=== PATIENT | male | born 1995 | race American Indian/Alaskan Native ===

== ENCOUNTER 2017-07-20 22:23 | Emergency (ER) | payer SELFPAY ==
[2017-07-20 23:58] VITALS: BP 138/85
[2017-07-21 00:22] LABS: Basophils % (Auto) 1.1 % (0.0-1.8); Eosinophils % (Auto) 0.6 % (0.0-4.3); Hematocrit 49.9 % (35.5-45.6); Hemoglobin 16.4 gm/dl (11.8-15.2); Mean Corpuscular HGB Conc 33 % (32-34); Mean Corpuscular Hemoglobin 29 pg (28-32); Mean Corpuscular Volume 88 fl (84-94); Platelet Count 224 K/mm3 (140-440); Red Blood Count 5.66 M/mm3 (3.65-5.03); White Blood Count 7.6 K/mm3 (4.5-11.0)
[2017-07-21 00:39] LABS: Alanine Aminotransferase 16 units/L (7-56); Albumin 4.9 g/dL (3.9-5); Albumin/Globulin Ratio 1.5 %; Alkaline Phosphatase 60 units/L (35-129); Total Protein 8.1 g/dL (6.3-8.2)
[2017-07-21 00:40] LABS: Alanine Aminotransferase 15 units/L (7-56); Albumin 4.9 g/dL (3.9-5); Albumin/Globulin Ratio 1.6 %; Alkaline Phosphatase 60 units/L (35-129); Anion Gap 17 mmol/L; BUN/Creatinine Ratio 10; Blood Urea Nitrogen 11 mg/dL (9-20); Calcium 9.9 mg/dL (8.4-10.2); Carbon Dioxide 30 mmol/L (22-30); Chloride 99.4 mmol/L (98-107); Glucose 101 mg/dL (75-100); Lipase 45 units/L (13-60); Potassium 4.1 mmol/L (3.6-5.0); Sodium 142 mmol/L (137-145)
[2017-07-21 00:43] LABS: Bilirubin,Direct < 0.2 mg/dL (0-0.2); Bilirubin,Indirect 0.3 mg/dL
[2017-07-21 01:05] LABS: Bilirubin,Urine NEG (Negative); Blood,Urine NEG (Negative); Ketones,Urine NEG (Negative); Leukocyte Esterase,Urine NEG (Negative); Mucus,Urine FEW /HPF; Nitrite,Urine NEG (Negative); Protein,Urine <15 mg/dL mg/dL (Negative)
[2017-07-21] MEDS ORDERED: PROTONIX IV ONE (01:40)
[2017-07-21] MEDS ORDERED: NACL 0.9% 1000 ML 1,000 ML IV ONE (01:40)
[2017-07-21] MEDS ORDERED: ZOFRAN IV ONE (01:40)
--- NOTE | 2017-07-21 01:44 | Emergency Department Report ---
ED Abdominal Pain HPI - General Chief Complaint: Nausea/Vomiting/Diarrhea Stated Complaint: NAUSEA AND WEAKNESS Time Seen by Provider: 07/21/17 01:33 Source: patient Mode of arrival: Ambulatory Limitations: No Limitations - History of Present Illness Initial Comments: Patient is a 22 years old male was no significant past medical history came today received a history of nausea vomiting and epigastric pain. Patient stated that he's been vomiting multiple times. Patient denied fever, no diarrhea. MD Complaint: abdominal pain -: days(s) (3 days) Location: epigastric Radiation: none Migration to: no migration Severity scale (0 -10): 8 Quality: sharp Improves With: vomiting Associated Symptoms: nausea, vomiting. denies: diarrhea, fever, chills, constipation, dysuria, hematemesis - Related Data Previous Rx's Medication Instructions Recorded Last Taken Type Omeprazole Magnesium [PriLOSEC Otc] 20 mg PO QDAY #7 tablet. 05/11/16 Unknown Rx traMADol [Ultram] 50 mg PO Q6HR PRN #7 tablet 05/11/16 Unknown Rx Allergies Allergy/AdvReac Type Severity Reaction Status Date / Time No Known Allergies Allergy Verified 07/20/17 23:56 ED Review of Systems ROS: Stated complaint: NAUSEA AND WEAKNESS Other details as noted in HPI Comment: All other systems reviewed and negative Constitutional: denies: chills, fever Respiratory: denies: cough, orthopnea, shortness of breath, SOB with exertion, SOB at rest Cardiovascular: denies: chest pain, palpitations, dyspnea on exertion, edema, syncope, paroxysmal nocturnal dyspnea Gastrointestinal: abdominal pain, nausea, vomiting. denies: diarrhea, constipation, hematemesis, melena, hematochezia Genitourinary: denies: urgency, dysuria, frequency Musculoskeletal: denies: back pain Neurological: denies: headache, weakness, numbness, paresthesias ED Past Medical Hx - Past Medical History Previous Medical History?: No - Surgical History Past Surgical History?: No - Social History Smoking Status: Current Every Day Smoker Substance Use Type: Alcohol, Marijuana - Medications Home Medications: Home Medications Medication Instructions Recorded Confirmed Last Taken Type Omeprazole Magnesium [PriLOSEC Otc] 20 mg PO QDAY #7 tablet. 05/11/16 Unknown Rx traMADol [Ultram] 50 mg PO Q6HR PRN #7 tablet 05/11/16 Unknown Rx ED Physical Exam - General Limitations: No Limitations General appearance: alert, in no apparent distress - Head Head exam: Present: normocephalic - Eye Eye exam: Present: normal appearance - ENT ENT exam: Present: normal exam, normal orophraynx, mucous membranes dry - Neck Neck exam: Present: normal inspection. Absent: tenderness, meningismus, full ROM, lymphadenopathy, thyromegaly - Respiratory Respiratory exam: Present: normal lung sounds bilaterally. Absent: respiratory distress, wheezes, rales, rhonchi, chest wall tenderness, accessory muscle use, decreased breath sounds, prolonged expiratory - Cardiovascular Cardiovascular Exam: Present: regular rate, normal rhythm, normal heart sounds - GI/Abdominal GI/Abdominal exam: Present: soft, tenderness (epigastric), normal bowel sounds. Absent: distended, guarding, rebound, rigid, diminished bowel sounds, hyperactive bowel sounds, hypoactive bowel sounds, organomegaly, mass, bruit, pulsatile mass, hernia - Extremities Exam Extremities exam: Present: normal inspection, full ROM - Back Exam Back exam: Present: normal inspection. Absent: CVA tenderness (R), CVA tenderness (L) - Neurological Exam Neurological exam: Present: alert, oriented X3, CN II-XII intact, normal gait - Skin Skin exam: Present: warm, dry, intact ED Course Vital Signs 07/20/17 07/21/17 22:35 01:38 Temperature 998.2 F H Pulse Rate 92 H Respiratory 18 18 Rate Blood Pressure 138/85 Blood Pressure 138/85 [Right] O2 Sat by Pulse 98 Oximetry - Reevaluation(s) Reevaluation #1: 07/21/17 03:22 The patient stated that his feeling better and is ready to go home. ED Medical Decision Making - Lab Data Result diagrams: 07/21/17 00:04 07/21/17 00:04 Critical care attestation.: If time is entered above; I have spent that time in minutes in the direct care of this critically ill patient, excluding procedure time. ED Disposition Clinical Impression: Abdominal pain, Vomiting, Gastritis Disposition: -01 TO HOME OR SELFCARE Is pt being admited?: No Condition: Stable Instructions: Abdominal Pain (ED), Gastritis (ED) Referrals: PRIMARY CARE,MD [Primary Care Provider] - 3-5 Days
== END 2017-07-21 04:02 | disposition home or self-care (01) ==
LOC: ED 22:23 → EEVIPCON 22:23 → ED 07-21 04:02
DX: K29.70 Gastritis, unspecified, without bleeding (principal); F17.210 Nicotine dependence, cigarettes, uncomplicated; F12.10 Cannabis abuse, uncomplicated
CPT/HCPCS: 36415; 80053; 80074; 81001; 82140; 83690; 85025; 96361; 96374; 96375; 99283; C9113; J2405; J7030

== ENCOUNTER 2017-08-29 01:10 | Inpatient (IN) | payer SELFPAY ==
[2017-08-29 02:31] LABS: Basophils % (Auto) 0.4 % (0.0-1.8); Eosinophils % (Auto) 0.7 % (0.0-4.3); Hematocrit 48.2 % (35.5-45.6); Mean Corpuscular HGB Conc 33 % (32-34); Mean Corpuscular Hemoglobin 29 pg (28-32); Mean Corpuscular Volume 89 fl (84-94); Platelet Count 190 K/mm3 (140-440); Red Blood Count 5.45 M/mm3 (3.65-5.03); Red Cell Distribution Width 13.1 % (13.2-15.2); White Blood Count 8.1 K/mm3 (4.5-11.0)
[2017-08-29 02:52] LABS: Anion Gap 18 mmol/L; BUN/Creatinine Ratio 17; Blood Urea Nitrogen 19 mg/dL (9-20); Calcium 9.7 mg/dL (8.4-10.2); Carbon Dioxide 27 mmol/L (22-30); Chloride 99.8 mmol/L (98-107); Glucose 93 mg/dL (75-100); Potassium 4.1 mmol/L (3.6-5.0); Sodium 141 mmol/L (137-145)
[2017-08-29] MEDS ORDERED: CARAFATE PO ONE (08:40)
[2017-08-29] MEDS ORDERED: ZOFRAN IV ONE (08:40)
[2017-08-29] MEDS ORDERED: PEPCID IV ONE (08:40)
--- NOTE | 2017-08-29 08:41 | Emergency Department Report ---
ED Chest Pain HPI - General Chief Complaint: Chest Pain Stated Complaint: CHEST PAIN,VOMITING Time Seen by Provider: 08/29/17 08:30 Source: patient, RN notes reviewed Mode of arrival: Ambulatory Limitations: No Limitations - History of Present Illness Initial Comments: This is a 22-year-old male who was previously unknown to this provider. The patient presents to the ER with a complaint of epigastric chest pain that radiates to the back. It has been present intermittently since Tuesday. He describes nausea and vomiting but no shortness of breath, diaphoresis. No cocaine use. No pulmonary embolus or DVT risk factors. His pain has no exacerbating or relieving factors. MD Complaint: chest pain -: Gradual Onset: during exertion Pain Location: substernal Pain Radiation: back Quality: aching Consistency: intermittent Improves With: nothing Worsens With: nothing re: nausea, vomting Aspirin use within the Past 7 Days: (0) No - Related Data On Oral Contraceptives: No Previous Rx's Medication Instructions Recorded Last Taken Type Ondansetron [Zofran Odt] 4 mg PO Q8HR PRN #14 tab.rapdis 07/21/17 08/28/17 Rx Allergies Allergy/AdvReac Type Severity Reaction Status Date / Time No Known Allergies Allergy Verified 07/20/17 23:56 Heart Score - HEART Score History: Slightly suspicious EKG: Non-specific Age: < 45 Risk factors: No known risk factors Troponin: < normal limit HEART Score: 1 - Critical Actions Critical Actions: 0-3 pts:0.9-1.7%risk of adverse cardiac event.Candidate for discharge ED Review of Systems ROS: Stated complaint: CHEST PAIN,VOMITING Other details as noted in HPI Constitutional: denies: fever, malaise Eyes: denies: vision change ENT: denies: epistaxis Respiratory: denies: cough Cardiovascular: chest pain Gastrointestinal: vomiting Genitourinary: as per HPI Musculoskeletal: as per HPI Skin: as per HPI Neurological: as per HPI ED Past Medical Hx - Past Medical History Previous Medical History?: No - Surgical History Past Surgical History?: No - Social History Smoking Status: Current Every Day Smoker - Medications Home Medications: Home Medications Medication Instructions Recorded Confirmed Last Taken Type Ondansetron [Zofran Odt] 4 mg PO Q8HR PRN #14 tab.rapdis 07/21/17 08/29/1708/28 Rx ED Physical Exam - General Limitations: No Limitations General appearance: alert, in no apparent distress - Head Head exam: Present: atraumatic, normocephalic - Eye Eye exam: Present: normal appearance, EOMI. Absent: nystagmus - ENT ENT exam: Present: normal exam, normal orophraynx, mucous membranes moist, normal external ear exam - Neck Neck exam: Present: normal inspection, full ROM - Respiratory Respiratory exam: Present: normal lung sounds bilaterally. Absent: respiratory distress - Cardiovascular Cardiovascular Exam: Present: regular rate, normal rhythm, normal heart sounds. Absent: systolic murmur, diastolic murmur, rubs, gallop - GI/Abdominal GI/Abdominal exam: Present: soft, normal bowel sounds. Absent: distended, tenderness, guarding, rebound, rigid, pulsatile mass - Rectal Rectal exam: Present: deferred - Extremities Exam Extremities exam: Present: normal inspection, full ROM, normal capillary refill. Absent: tenderness, pedal edema, joint swelling, calf tenderness - Back Exam Back exam: Present: normal inspection, full ROM. Absent: tenderness, CVA tenderness (R), paraspinal tenderness, vertebral tenderness - Neurological Exam Neurological exam: Present: alert, oriented X3, CN II-XII intact, normal gait, other (Extraocular movements intact. Tongue midline. No facial droop. Facial sensation intact to light touch in the V1, V2, V3 distribution bilaterally. 5 and 5 strength in 4 extremities.. Sensation is intact to light touch in 4 extremities.). Absent: motor sensory deficit - Psychiatric Psychiatric exam: Present: normal affect, normal mood - Skin Skin exam: Present: warm, dry, intact, normal color. Absent: rash ED Course Vital Signs 08/29/17 08/29/17 08/29/17 01:12 01:52 08:41 Temperature 98.3 F 98.3 F Pulse Rate 95 H 87 72 Respiratory 18 18 13 Rate Blood Pressure 139/88 139/88 O2 Sat by Pulse 99 99 Oximetry 08/29/17 08/29/17 08/29/17 08:45 09:00 09:12 Temperature Pulse Rate 80 69 Respiratory 15 10 L 18 Rate Blood Pressure 124/72 122/81 O2 Sat by Pulse 98 99 99 Oximetry 08/29/17 08/29/17 08/29/17 09:15 09:17 09:30 Temperature Pulse Rate 69 70 73 Respiratory 19 17 Rate Blood Pressure 117/71 117/71 O2 Sat by Pulse 98 99 Oximetry 08/29/17 08/29/17 08/29/17 09:45 10:00 10:15 Temperature Pulse Rate 73 76 76 Respiratory 11 L 12 8 L Rate Blood Pressure 120/77 120/77 123/84 O2 Sat by Pulse 98 99 99 Oximetry 08/29/17 08/29/17 10:30 10:45 Temperature Pulse Rate 91 H 78 Respiratory 11 L 11 L Rate Blood Pressure 130/71 142/79 O2 Sat by Pulse 98 99 Oximetry AIME score - Aime Score Age > 65: (0) No Aspirin use within the Past 7 Days: (0) No 3 or more CAD Risk Factors: (0) No 2 or more Angina events in past 24 hrs: (0) No Known CAD with more than 50% Stenosis: (0) No Elevated Cardiac Markers: (0) No ST Deviation Greater than 0.5mm: (0) No AIME Score: 0 ED Medical Decision Making - Lab Data Result diagrams: 08/29/17 02:07 08/29/17 02:07 Vital Signs 08/29/17 08/29/17 08/29/17 01:12 01:52 08:41 Temperature 98.3 F 98.3 F Pulse Rate 95 H 87 72 Respiratory 18 18 13 Rate Blood Pressure 139/88 139/88 O2 Sat by Pulse 99 99 Oximetry 08/29/17 08/29/17 08/29/17 08:45 09:00 09:12 Temperature Pulse Rate 80 69 Respiratory 15 10 L 18 Rate Blood Pressure 124/72 122/81 O2 Sat by Pulse 98 99 99 Oximetry 08/29/17 09:17 Temperature Pulse Rate 70 Respiratory Rate Blood Pressure O2 Sat by Pulse Oximetry Lab Results 08/29/17 08/29/17 08/29/17 Range/Units 02:07 02:07 02:07 WBC 8.1 (4.5-11.0) K/mm3 RBC 5.45 H (3.65-5.03) M/mm3 Hgb 16.0 H (11.8-15.2) gm/dl Hct 48.2 H (35.5-45.6) % MCV 89 (84-94) fl MCH 29 (28-32) pg MCHC 33 (32-34) % RDW 13.1 L (13.2-15.2) % Plt Count 190 (140-440) K/mm3 Lymph % (Auto) 9.1 L (13.4-35.0) % [place] % (Auto) 8.2 H (0.0-7.3) % Eos % (Auto) 0.7 (0.0-4.3) % Baso % (Auto) 0.4 (0.0-1.8) % Lymph # 0.7 L (1.2-5.4) K/mm3 [place] # 0.7 (0.0-0.8) K/mm3 Eos # 0.1 (0.0-0.4) K/mm3 Baso # 0.0 (0.0-0.1) K/mm3 Seg Neutrophils % 81.6 H (40.0-70.0) % Seg Neutrophils # 6.6 (1.8-7.7) K/mm3 Sodium 141 (137-145) mmol/L Potassium 4.1 (3.6-5.0) mmol/L Chloride 99.8 (98-107) mmol/L Carbon Dioxide 27 (22-30) mmol/L Anion Gap 18 mmol/L BUN 19 (9-20) mg/dL Creatinine 1.1 (0.8-1.5) mg/dL Estimated GFR > 60 ml/min BUN/Creatinine Ratio 17 % Glucose 93 (75-100) mg/dL Calcium 9.7 (8.4-10.2) mg/dL Troponin T < 0.010 (0.00-0.029) ng/mL Lipase 21 (13-60) units/L Urine Color (Yellow) Urine Turbidity (Clear) Urine pH (5.0-7.0) Ur Specific [place] (1.003-1.030) Urine Protein (Negative) mg/dL Urine Glucose (UA) (Negative) mg/dL Urine Ketones (Negative) mg/dL Urine Blood (Negative) Urine Nitrite (Negative) Urine Bilirubin (Negative) Urine Urobilinogen (<2.0) mg/dL Ur Leukocyte Esterase (Negative) Urine WBC (Auto) (0.0-6.0) /HPF Urine RBC (Auto) (0.0-6.0) /HPF Urine Bacteria (Auto) (Negative) /HPF Urine Mucus /HPF 08/29/17 08/29/17 08/29/17 Range/Units 05:32 07:39 08:22 WBC (4.5-11.0) K/mm3 RBC (3.65-5.03) M/mm3 Hgb (11.8-15.2) gm/dl Hct (35.5-45.6) % MCV (84-94) fl MCH (28-32) pg MCHC (32-34) % RDW (13.2-15.2) % Plt Count (140-440) K/mm3 Lymph % (Auto) (13.4-35.0) % [place] % (Auto) (0.0-7.3) % Eos % (Auto) (0.0-4.3) % Baso % (Auto) (0.0-1.8) % Lymph # (1.2-5.4) K/mm3 [place] # (0.0-0.8) K/mm3 Eos # (0.0-0.4) K/mm3 Baso # (0.0-0.1) K/mm3 Seg Neutrophils % (40.0-70.0) % Seg Neutrophils # (1.8-7.7) K/mm3 Sodium (137-145) mmol/L Potassium (3.6-5.0) mmol/L Chloride (98-107) mmol/L Carbon Dioxide (22-30) mmol/L Anion Gap mmol/L BUN (9-20) mg/dL Creatinine (0.8-1.5) mg/dL Estimated GFR ml/min BUN/Creatinine Ratio % Glucose (75-100) mg/dL Calcium (8.4-10.2) mg/dL Troponin T < 0.010 < 0.010 (0.00-0.029) ng/mL Lipase (13-60) units/L Urine Color Yellow (Yellow) Urine Turbidity Clear (Clear) Urine pH 5.0 (5.0-7.0) Ur Specific [place] 1.033 H (1.003-1.030) Urine Protein 30 mg/dl (Negative) mg/dL Urine Glucose (UA) Neg (Negative) mg/dL Urine Ketones 80 (Negative) mg/dL Urine Blood Neg (Negative) Urine Nitrite Neg (Negative) Urine Bilirubin Neg (Negative) Urine Urobilinogen 4.0 (<2.0) mg/dL Ur Leukocyte Esterase Neg (Negative) Urine WBC (Auto) 3.0 (0.0-6.0) /HPF Urine RBC (Auto) 6.0 (0.0-6.0) /HPF Urine Bacteria (Auto) 1+ (Negative) /HPF Urine Mucus 3+ /HPF - EKG Data -: EKG Interpreted by Me - EKG Data 08/29/17 10:46 EKG #1 demonstrates normal sinus, 72 bpm, normal axis, incomplete right bundle branch block, high left ventricular voltage, nonspecific ST elevation, abnormal EKG, not morphologically consistent with ST elevation myocardial infarction. EKG #2 appears unchanged. While the computer interprets EKG is consistent with ST elevation myocardial infarction, there are no reciprocal changes, ST elevations appear to be more consistent with high left ventricular voltage, this is an abnormal EKG, but not morphologically consistent with STEMI. - Radiology Data Radiology results: report reviewed, image reviewed X-ray the chest is negative for acute disease - Medical Decision Making Differential diagnosis, including not limited to: GERD, gastritis, pericarditis , myocarditis, acute coronary syndrome Assessment and plan: 22-year-old male with chest pain and no cardiovascular risk factors. No pulmonary embolus or DVT risk factors, low risk by well's criteria, perc negative I highly suspect that the patient's chest pain is more GI in nature. However his EKG is markedly abnormal with a prior for comparison, not consistent with STEMI, maybe early pericarditis versus early repolarization. Given EKG abnormalities, description of pain, patient will be admitted for acute coronary syndrome risk stratification. Troponin negative, therefore myocarditis is unlikely. Patient medicated for GI pain. X-ray of the chest was negative. Case discussed with cardiology on-call, Caroline Banuelos, and hospital nurse practitioner, No Porter, who agreed to consult and admit on the patient respectfully. Critical care attestation.: If time is entered above; I have spent that time in minutes in the direct care of this critically ill patient, excluding procedure time. ED Disposition Clinical Impression: Chest pain Disposition: DC-[id number] OP ADMIT IP TO THIS HOSP Is pt being admited?: Yes Does the pt Need Aspirin: Yes Condition: Stable
[2017-08-29 08:45] LABS: Bacteria,Urine 1+ /HPF (Negative); Bilirubin,Urine NEG (Negative); Blood,Urine NEG (Negative); Ketones,Urine 80 mg/dL (Negative); Leukocyte Esterase,Urine NEG (Negative); Mucus,Urine 3+ /HPF; Nitrite,Urine NEG (Negative)
--- NOTE | 2017-08-29 09:14 | XRay Report ---
AP CHEST: HISTORY: chest pain AP view of the chest demonstrates a normal mediastinal and cardiac contour with clear lungs and normal bony and soft tissue structures. IMPRESSION: Unremarkable AP chest.
[2017-08-29] MEDS ORDERED: MORPHINE IV PRN (09:42)
[2017-08-29] MEDS ORDERED: TYLENOL PO PRN (09:42)
[2017-08-29] MEDS ORDERED: NITROSTAT SL PRN (09:46)
--- NOTE | 2017-08-29 09:54 | History and Physical Report ---
<KRISTINA LANCASTER - Last Filed: 08/29/17 13:10> History of Present Illness Date of examination: 08/29/17 Date of admission: 08/29/2017 Chief complaint: Chest pain History of present illness: Patient is a 22 years old male with no past medical history who presented to the Emergency Department complaining of Midsternal chest pain. He states that the pain began Tuesday, after eating dinner, constant midsternal chest pain. Patient described the pain as, tightness in his chest; that radiates to the back. The sharp pain lasted around 1o minute. There is no aggravating or reliving factors. The painful episodes did not increase in intensity or severity during this time. Patient denies having chest pain at present time. He also localizes the pain to his epigastric area and states that it radiates to his Back. he notes that it became markedly worse after eating dinner Tuesday08/26/17. He experienced nausea and vomiting but no shortness of breath, diaphoresis. He has never had chest pain in the past. He continued to have several episodes of the pain throughout the morning, he decided to come to the emergency department. Medications and Allergies Allergies Allergy/AdvReac Type Severity Reaction Status Date / Time No Known Allergies Allergy Verified 07/20/17 23:56 Home Medications Medication Instructions Recorded Confirmed Last Taken Type Ondansetron [Zofran Odt] 4 mg PO Q8HR PRN #14 tab.rapdis 07/21/17 08/29/1708/28 Rx Active Meds: Active Medications Acetaminophen (Tylenol) 650 mg PO Q4H PRN PRN Reason: Pain MILD(1-3)/Fever >100.5/TORRES Aspirin (Baby Aspirin) 324 mg PO ONCE STA Stop: 08/29/17 09:47 Bisacodyl (Dulcolax) 10 mg ND QDAY PRN PRN Reason: Constipation unrelieved by MOM Enoxaparin Sodium (Lovenox) 40 mg SUB-Q QDAY KIMBERLY Morphine Sulfate (Morphine) 2 mg IV Q4H PRN PRN Reason: Pain, Moderate (4-6) Nitroglycerin (Nitrostat) 0.4 mg SL .Q5MIN PRN PRN Reason: Chest Pain Pantoprazole Sodium (Protonix) 40 mg IV QDAY KIMBERLY Review of Systems Constitutional: no weight gain, no fever, no chills Ears, nose, mouth and throat: no ear discharge, no decreased hearing, no nasal congestion Cardiovascular: chest pain, no palpitations, no shortness of breath, no dyspnea on exertion Respiratory: no cough, no shortness of breath, no dyspnea on exertion Gastrointestinal: nausea, vomiting, no abdominal pain, no diarrhea, no constipation Rectal: no incontinence, no bleeding Musculoskeletal: no shooting arm pain, no arm numbness/tingling, no low back pain Integumentary: no wounds, no jaundice, no boils Neurological: no seizures, no syncope, no tremors Psychiatric: no change in appetite, no change in libido, no suicidal ideation Endocrine: polyphagia, excessive thirst, polydipsia, no cold intolerance, no heat intolerance, no nocturia Hematologic/Lymphatic: no easy bruising, no easy bleeding Allergic/Immunologic: no urticaria, no allergic rhinitis Exam - Constitutional Vitals: Temp Pulse Resp BP Pulse Ox 98.3 F 70 18 122/81 99 08/29/17 01:52 08/29/17 09:17 08/29/17 09:12 08/29/17 09:00 08/29/17 09:12 General appearance: Present: no acute distress - EENT Eyes: Present: PERRL ENT: hearing intact - Neck Neck: Present: supple - Respiratory Respiratory effort: normal Respiratory: bilateral: CTA - Cardiovascular Rhythm: regular Heart Sounds: Present: S1 & S2 - Abdominal General gastrointestinal: Present: soft, non-tender Male genitourinary: Present: deferred - Rectal Rectal Exam: deferred - Integumentary Integumentary: Present: clear, warm, dry - Musculoskeletal Musculoskeletal: strength equal bilaterally - Psychiatric Psychiatric: appropriate mood/affect - Neurologic Neurologic: moves all extremities - Allied Health Allied health notes reviewed: nursing Results - Labs CBC & Chem 7: 08/29/17 02:07 08/29/17 02:07 Labs: Laboratory Last Values WBC 8.1 K/mm3 (4.5-11.0) 08/29/17 02:07 RBC 5.45 M/mm3 (3.65-5.03) H 08/29/17 02:07 Hgb 16.0 gm/dl (11.8-15.2) H 08/29/17 02:07 Hct 48.2 % (35.5-45.6) H 08/29/17 02:07 MCV 89 fl (84-94) 08/29/17 02:07 MCH 29 pg (28-32) 08/29/17 02:07 MCHC 33 % (32-34) 08/29/17 02:07 RDW 13.1 % (13.2-15.2) L 08/29/17 02:07 Plt Count 190 K/mm3 (140-440) 08/29/17 02:07 Lymph % (Auto) 9.1 % (13.4-35.0) L 08/29/17 02:07 [place] % (Auto) 8.2 % (0.0-7.3) H 08/29/17 02:07 Eos % (Auto) 0.7 % (0.0-4.3) 08/29/17 02:07 Baso % (Auto) 0.4 % (0.0-1.8) 08/29/17 02:07 Lymph # 0.7 K/mm3 (1.2-5.4) L 08/29/17 02:07 [place] # 0.7 K/mm3 (0.0-0.8) 08/29/17 02:07 Eos # 0.1 K/mm3 (0.0-0.4) 08/29/17 02:07 Baso # 0.0 K/mm3 (0.0-0.1) 08/29/17 02:07 Seg Neutrophils % 81.6 % (40.0-70.0) H 08/29/17 02:07 Seg Neutrophils # 6.6 K/mm3 (1.8-7.7) 08/29/17 02:07 Sodium 141 mmol/L (137-145) 08/29/17 02:07 Potassium 4.1 mmol/L (3.6-5.0) 08/29/17 02:07 Chloride 99.8 mmol/L (98-107) 08/29/17 02:07 Carbon Dioxide 27 mmol/L (22-30) 08/29/17 02:07 Anion Gap 18 mmol/L 08/29/17 02:07 BUN 19 mg/dL (9-20) 08/29/17 02:07 Creatinine 1.1 mg/dL (0.8-1.5) 08/29/17 02:07 Estimated GFR > 60 ml/min 08/29/17 02:07 BUN/Creatinine Ratio 17 % 08/29/17 02:07 Glucose 93 mg/dL (75-100) 08/29/17 02:07 Calcium 9.7 mg/dL (8.4-10.2) 08/29/17 02:07 Troponin T < 0.010 ng/mL (0.00-0.029) 08/29/17 07:39 Lipase 21 units/L (13-60) 08/29/17 02:07 Urine Color Yellow (Yellow) 08/29/17 08:22 Urine Turbidity Clear (Clear) 08/29/17 08:22 Urine pH 5.0 (5.0-7.0) 08/29/17 08:22 Ur Specific [place] 1.033 (1.003-1.030) H 08/29/17 08:22 Urine Protein 30 mg/dl mg/dL (Negative) 08/29/17 08:22 Urine Glucose (UA) Neg mg/dL (Negative) 08/29/17 08:22 Urine Ketones 80 mg/dL (Negative) 08/29/17 08:22 Urine Blood Neg (Negative) 08/29/17 08:22 Urine Nitrite Neg (Negative) 08/29/17 08:22 Urine Bilirubin Neg (Negative) 08/29/17 08:22 Urine Urobilinogen 4.0 mg/dL (<2.0) 08/29/17 08:22 Ur Leukocyte Esterase Neg (Negative) 08/29/17 08:22 Urine WBC (Auto) 3.0 /HPF (0.0-6.0) 08/29/17 08:22 Urine RBC (Auto) 6.0 /HPF (0.0-6.0) 08/29/17 08:22 Urine Bacteria (Auto) 1+ /HPF (Negative) 08/29/17 08:22 Urine Mucus 3+ /HPF 08/29/17 08:22 - Imaging and Cardiology Chest x-ray: image reviewed (unremarkable) Assessment and Plan Assessment and plan: Chest Pain We will admit to telemetry floor. EKG normal sinus, no ST elevation or T-wave inversion. Negative cardiac enzyme X3 Start on aspirin Nitroglycerin when necessary Morphine ordered for pain We will get Echocardiogram to rule out cardiomyopathy Intractable nausea and vomiting We will get Abdominal/pelvic CT Started on IV Protonix Antiemetic IV fluid Dehydration Started IV fluid Closely monitor electrolytes DVT prophylaxis Lovenox Advance Directives: Yes VTE prophylaxis?: Chemical Contraindication Mechanical VTE Prophylaxis: Treatment Not Indicated Plan of care discussed with patient/family: Yes <LAVELL IBRAHIM - Last Filed: 08/30/17 17:42> History of Present Illness Date of admission: 08/29/17 09:42 Medications and Allergies Active Meds: Active Medications Acetaminophen (Tylenol) 650 mg PO Q4H PRN PRN Reason: Pain MILD(1-3)/Fever >100.5/TORRES Bisacodyl (Dulcolax) 10 mg ND QDAY PRN PRN Reason: Constipation unrelieved by MOM Calcium Carbonate/Glycine (Tums) 500 mg PO BID KIMBERLY Enoxaparin Sodium (Lovenox) 40 mg SUB-Q QDAY [facility] Last Admin: 08/30/17 11:53 Dose: Not Given Sodium Chloride (Nacl 0.9% 1000 Ml) 1,000 mls @ 75 mls/hr IV DIRECT KIMBERLY Last Admin: 08/29/17 23:10 Dose: 75 mls/hr Ceftriaxone Sodium 1 gm/ (Sodium Chloride) 20 mls @ 20 mls/10 min IV Q24HR KIMBERLY PRN Reason: Protocol Last Admin: 08/30/17 11:53 Dose: 20 mls/10 min Morphine Sulfate (Morphine) 2 mg IV Q4H PRN PRN Reason: Pain, Moderate (4-6) Last Admin: 08/30/17 05:37 Dose: 2 mg Nitroglycerin (Nitrostat) 0.4 mg SL .Q5MIN PRN PRN Reason: Chest Pain Ondansetron HCl (Zofran) 4 mg IM Q4H PRN PRN Reason: Nausea And Vomiting Last Admin: 08/30/17 05:38 Dose: 4 mg Pantoprazole Sodium (Protonix) 40 mg IV QDAY [facility] Last Admin: 08/30/17 11:53 Dose: 40 mg Potassium Chloride (K-Dur) 20 meq PO ONCE ONE Stop: 08/30/17 18:31 Exam - Constitutional Vitals: Temp Pulse Resp BP Pulse Ox 97.9 F 53 L 23 119/77 99 08/30/17 04:06 08/30/17 04:06 08/30/17 05:37 08/30/17 04:06 08/30/17 04:06 Results - Labs CBC & Chem 7: 08/30/17 05:40 08/30/17 05:40 Labs: Laboratory Last Values WBC 3.0 K/mm3 (4.5-11.0) L 08/30/17 05:40 RBC 4.01 M/mm3 (3.65-5.03) 08/30/17 05:40 Hgb 11.9 gm/dl (11.8-15.2) D 08/30/17 05:40 Hct 35.7 % (35.5-45.6) D 08/30/17 05:40 MCV 89 fl (84-94) 08/30/17 05:40 MCH 30 pg (28-32) 08/30/17 05:40 MCHC 33 % (32-34) 08/30/17 05:40 RDW 13.0 % (13.2-15.2) L 08/30/17 05:40 Plt Count 133 K/mm3 (140-440) L 08/30/17 05:40 Lymph % (Auto) 9.1 % (13.4-35.0) L 08/29/17 02:07 [place] % (Auto) [employer] Technical Assistant 08/30/17 05:40 Eos % (Auto) 0.7 % (0.0-4.3) 08/29/17 02:07 Baso % (Auto) 0.4 % (0.0-1.8) 08/29/17 02:07 Lymph # 0.7 K/mm3 (1.2-5.4) L 08/29/17 02:07 [place] # 0.7 K/mm3 (0.0-0.8) 08/29/17 02:07 Eos # 0.1 K/mm3 (0.0-0.4) 08/29/17 02:07 Baso # 0.0 K/mm3 (0.0-0.1) 08/29/17 02:07 Add Manual Diff Complete 08/30/17 05:40 Total Counted 100 08/30/17 05:40 Seg Neutrophils % 81.6 % (40.0-70.0) H 08/29/17 02:07 Seg Neuts % (Manual) 43.0 % (40.0-70.0) 08/30/17 05:40 Band Neutrophils % 0 % 08/30/17 05:40 Lymphocytes % (Manual) 41.0 % (13.4-35.0) H 08/30/17 05:40 Reactive Lymphs % (Man) 0 % 08/30/17 05:40 Monocytes % (Manual) 14.0 % (0.0-7.3) H 08/30/17 05:40 Eosinophils % (Manual) 2.0 % (0.0-4.3) 08/30/17 05:40 Basophils % (Manual) 0 % (0.0-1.8) 08/30/17 05:40 Metamyelocytes % 0 % 08/30/17 05:40 Myelocytes % 0 % 08/30/17 05:40 Promyelocytes % 0 % 08/30/17 05:40 Blast Cells % 0 % 08/30/17 05:40 Nucleated RBC % Not Reportable 08/30/17 05:40 Seg Neutrophils # 6.6 K/mm3 (1.8-7.7) 08/29/17 02:07 Seg Neutrophils # Man 1.3 K/mm3 (1.8-7.7) L 08/30/17 05:40 Band Neutrophils # 0.0 K/mm3 08/30/17 05:40 Lymphocytes # (Manual) 1.2 K/mm3 (1.2-5.4) 08/30/17 05:40 Abs React Lymphs (Man) 0.0 K/mm3 08/30/17 05:40 Monocytes # (Manual) 0.4 K/mm3 (0.0-0.8) 08/30/17 05:40 Eosinophils # (Manual) 0.1 K/mm3 (0.0-0.4) 08/30/17 05:40 Basophils # (Manual) 0.0 K/mm3 (0.0-0.1) 08/30/17 05:40 Metamyelocytes # 0.0 K/mm3 08/30/17 05:40 Myelocytes # 0.0 K/mm3 08/30/17 05:40 Promyelocytes # 0.0 K/mm3 08/30/17 05:40 Blast Cells # 0.0 K/mm3 08/30/17 05:40 WBC Morphology Not Reportable 08/30/17 05:40 Hypersegmented Neuts Not Reportable 08/30/17 05:40 Hyposegmented Neuts Not Reportable 08/30/17 05:40 Hypogranular Neuts Not Reportable 08/30/17 05:40 Smudge Cells Not Reportable 08/30/17 05:40 Toxic Granulation Not Reportable 08/30/17 05:40 Toxic Vacuolation Not Reportable 08/30/17 05:40 Dohle Bodies Not Reportable 08/30/17 05:40 Pelger-Huet Anomaly Not Reportable 08/30/17 05:40 Tracey Rods Not Reportable 08/30/17 05:40 Platelet Estimate Not Reportable 08/30/17 05:40 Clumped Platelets Not Reportable 08/30/17 05:40 Plt Clumps, EDTA Not Reportable 08/30/17 05:40 Large Platelets Not Reportable 08/30/17 05:40 Giant Platelets Not Reportable 08/30/17 05:40 Platelet Satelliting Not Reportable 08/30/17 05:40 Plt Morphology Comment Not Reportable 08/30/17 05:40 RBC Morphology Normal 08/30/17 05:40 Dimorphic RBCs Not Reportable 08/30/17 05:40 Polychromasia Not Reportable 08/30/17 05:40 Hypochromasia Not Reportable 08/30/17 05:40 Poikilocytosis Not Reportable 08/30/17 05:40 Anisocytosis Not Reportable 08/30/17 05:40 Microcytosis Not Reportable 08/30/17 05:40 Macrocytosis Not Reportable 08/30/17 05:40 Spherocytes Not Reportable 08/30/17 05:40 Pappenheimer Bodies Not Reportable 08/30/17 05:40 Sickle Cells Not Reportable 08/30/17 05:40 Target Cells Not Reportable 08/30/17 05:40 Tear Drop Cells Not Reportable 08/30/17 05:40 Ovalocytes Not Reportable 08/30/17 05:40 Helmet Cells Not Reportable 08/30/17 05:40 Mcneil-Bellamy Bodies Not Reportable 08/30/17 05:40 [place] Rings Not Reportable 08/30/17 05:40 Emily Cells Not Reportable 08/30/17 05:40 Bite Cells Not Reportable 08/30/17 05:40 Crenated Cell Not Reportable 08/30/17 05:40 Elliptocytes Not Reportable 08/30/17 05:40 Acanthocytes (Spur) Not Reportable 08/30/17 05:40 Rouleaux Not Reportable 08/30/17 05:40 Hemoglobin C Crystals Not Reportable 08/30/17 05:40 Schistocytes Not Reportable 08/30/17 05:40 Malaria parasites Not Reportable 08/30/17 05:40 Sadiq Bodies Not Reportable 08/30/17 05:40 Hem Pathologist Commnt No 08/30/17 05:40 Sodium 147 mmol/L (137-145) H 08/30/17 05:40 Potassium 2.7 mmol/L (3.6-5.0) L* D 08/30/17 05:40 Chloride 117.2 mmol/L (98-107) H 08/30/17 05:40 Carbon Dioxide 17 mmol/L (22-30) L D 08/30/17 05:40 Anion Gap 16 mmol/L 08/30/17 05:40 BUN 16 mg/dL (9-20) 08/30/17 05:40 Creatinine 0.7 mg/dL (0.8-1.5) L 08/30/17 05:40 Estimated GFR > 60 ml/min 08/30/17 05:40 BUN/Creatinine Ratio 23 % 08/30/17 05:40 Glucose 59 mg/dL (75-100) L 08/30/17 05:40 Hemoglobin A1c 5.2 % (4-6) 08/30/17 05:40 Calcium 5.7 mg/dL (8.4-10.2) L* D 08/30/17 05:40 Troponin T < 0.010 ng/mL (0.00-0.029) 08/29/17 07:39 Lipase 21 units/L (13-60) 08/29/17 02:07 Urine Color Yellow (Yellow) 08/29/17 08:22 Urine Turbidity Clear (Clear) 08/29/17 08:22 Urine pH 5.0 (5.0-7.0) 08/29/17 08:22 Ur Specific [place] 1.033 (1.003-1.030) H 08/29/17 08:22 Urine Protein 30 mg/dl mg/dL (Negative) 08/29/17 08:22 Urine Glucose (UA) Neg mg/dL (Negative) 08/29/17 08:22 Urine Ketones 80 mg/dL (Negative) 08/29/17 08:22 Urine Blood Neg (Negative) 08/29/17 08:22 Urine Nitrite Neg (Negative) 08/29/17 08:22 Urine Bilirubin Neg (Negative) 08/29/17 08:22 Urine Urobilinogen 4.0 mg/dL (<2.0) 08/29/17 08:22 Ur Leukocyte Esterase Neg (Negative) 08/29/17 08:22 Urine WBC (Auto) 3.0 /HPF (0.0-6.0) 08/29/17 08:22 Urine RBC (Auto) 6.0 /HPF (0.0-6.0) 08/29/17 08:22 Urine Bacteria (Auto) 1+ /HPF (Negative) 08/29/17 08:22 Urine Mucus 3+ /HPF 08/29/17 08:22 Assessment and Plan Assessment and plan: I saw and evaluated the patient. I agree with the findings and the plan of care as documented in the Nurse Practitioner's~note, with the following corrections and additions. Follow cardiology evaluation and recommendations Check echocardiogram for left function ejection fraction
--- NOTE | 2017-08-29 10:12 | Consultation ---
History of Present Illness Consult date: 08/29/17 Consult reason: chest pain History of present illness: 22 year old male previously healthy presenting with nausea, projectile vomiting after smoking marijuana and also 1 hour after eating, epigastric pain and atypical chest pain. No previous cardiac or medical history. Exam is pertinent for epigastric tenderness. Patient denies alcohol or tobacco or cocaine use. ECG is showing SR with no ischemic findings. Past History Past Medical History: No medical history Past Surgical History: No surgical history Social history: other (marijuana use) Family history: no significant family history Medications and Allergies Allergies Allergy/AdvReac Type Severity Reaction Status Date / Time No Known Allergies Allergy Verified 07/20/17 23:56 Home Medications Medication Instructions Recorded Confirmed Last Taken Type Omeprazole Magnesium [PriLOSEC Otc] 20 mg PO QDAY #7 tablet. 05/11/16 Unknown Rx traMADol [Ultram] 50 mg PO Q6HR PRN #7 tablet 05/11/16 Unknown Rx Esomeprazole Magnesium [NexIUM] 40 mg PO QDAY #30 capsule. 07/21/17 Unknown Rx Ondansetron [Zofran Odt] 4 mg PO Q8HR PRN #14 tab.rapdis 07/21/17 Unknown Rx Active Meds: Active Medications Acetaminophen (Tylenol) 650 mg PO Q4H PRN PRN Reason: Pain MILD(1-3)/Fever >100.5/TORRES Aspirin (Baby Aspirin) 324 mg PO ONCE STA Stop: 08/29/17 09:47 Bisacodyl (Dulcolax) 10 mg [place] QDAY PRN PRN Reason: Constipation unrelieved by MOM Enoxaparin Sodium (Lovenox) 40 mg SUB-Q QDAY KIMBERLY Sodium Chloride (Nacl 0.9% 1000 Ml) 1,000 mls @ 75 mls/hr IV DIRECT KIMBERLY Morphine Sulfate (Morphine) 2 mg IV Q4H PRN PRN Reason: Pain, Moderate (4-6) Nitroglycerin (Nitrostat) 0.4 mg SL .Q5MIN PRN PRN Reason: Chest Pain Pantoprazole Sodium (Protonix) 40 mg IV QDAY KIMBERLY Review of Systems All systems: negative Physical Examination Vital Signs Temp Pulse Resp BP Pulse Ox 98.3 F 95 H 18 139/88 99 08/29/17 01:12 08/29/17 01:12 08/29/17 01:12 08/29/17 01:12 08/29/17 01:12 General appearance: no acute distress HEENT: Positive: PERRL Neck: Positive: neck supple Cardiac: Positive: Reg Rate and Rhythm Lungs: Positive: Normal Exam Neuro: Positive: Grossly Intact Abdomen: Positive: Tender (epigastric tenderness) Extremities: Present: normal Results 08/29/17 02:07 08/29/17 02:07 CBC 08/29/17 Range/Units 02:07 WBC 8.1 (4.5-11.0) K/mm3 RBC 5.45 H (3.65-5.03) M/mm3 Hgb 16.0 H (11.8-15.2) gm/dl Hct 48.2 H (35.5-45.6) % Plt Count 190 (140-440) K/mm3 Lymph # 0.7 L (1.2-5.4) K/mm3 [place] # 0.7 (0.0-0.8) K/mm3 Eos # 0.1 (0.0-0.4) K/mm3 Baso # 0.0 (0.0-0.1) K/mm3 Comprehensive Metabolic Panel 08/29/17 Range/Units 02:07 Sodium 141 (137-145) mmol/L Potassium 4.1 (3.6-5.0) mmol/L Chloride 99.8 (98-107) mmol/L Carbon Dioxide 27 (22-30) mmol/L BUN 19 (9-20) mg/dL Creatinine 1.1 (0.8-1.5) mg/dL Glucose 93 (75-100) mg/dL Calcium 9.7 (8.4-10.2) mg/dL EKG interpretations - Telemetry EKG Rhythm: Sinus Rhythm Assessment and Plan Epigastric pain Nausea Projectile vomiting Marijuana use Recommendations: No signs or symptoms to suggest ACS Order abdominal US to rule out GB disease Agree with a trial of PPI
[2017-08-29] MEDS ORDERED: ASPIRIN ONE (10:27)
[2017-08-29] MEDS: BABY ASPIRIN PO STA ×2 (10:28→12:57)
[2017-08-29] MEDS ORDERED: DULCOLAX PR PRN (10:31)
[2017-08-29] MEDS: NACL 0.9% 1000 ML 1,000 ML IV SCH ×2 (10:50→23:10)
[2017-08-29] MEDS ORDERED: ZOFRAN IM PRN (13:21)
--- NOTE | 2017-08-29 14:41 | Cat Scan Report ---
FINAL REPORT EXAM: CT ABDOMEN PELVIS WO CON HISTORY: N/V TECHNIQUE: CT of the abdomen and pelvis without IV contrast. Coronal and sagittal reconstructed imaging provided. PRIORS: None currently available. FINDINGS: ABDOMEN: Stomach: Unremarkable. Liver: Unremarkable. Gallbladder: Unremarkable. Spleen: Unremarkable. Pancreas: Unremarkable. Adrenals: Unremarkable. Kidneys: Unremarkable. No hydronephrosis. No nephroureteral stones. No perinephric stranding. There is no abdominal aortic aneurysm. IVC is unremarkable. There is no periaortic or retroperitoneal adenopathy or mass. . Mild to moderate stool. Terminal ileum is normal. Appendix is unremarkable. Large and small bowel loops do not demonstrate wall thickening or inflammatory changes. No obstructive pattern. No free air or free fluid. PELVIS: Bladder is unremarkable. No wall thickening. There is no pelvic mass or adenopathy. Inguinal regions are unremarkable. Bones: No suspicious osseous lesions on this limited examination of the skeleton. Metastatic disease better evaluated with bone scan. IMPRESSION: No acute findings.
[2017-08-29] MEDS: LOVENOX SUB-Q SCH (15:57)
[2017-08-29] MEDS: PROTONIX IV SCH (15:57)
[2017-08-30 06:12] LABS: Hematocrit 35.7 % (35.5-45.6); Hemoglobin 11.9 gm/dl (11.8-15.2); Mean Corpuscular HGB Conc 33 % (32-34); Mean Corpuscular Hemoglobin 30 pg (28-32); Mean Corpuscular Volume 89 fl (84-94); Platelet Count 133 K/mm3 (140-440); Red Blood Count 4.01 M/mm3 (3.65-5.03)
[2017-08-30 06:35] LABS: BUN/Creatinine Ratio 23; Blood Urea Nitrogen 16 mg/dL (9-20); Carbon Dioxide 17 mmol/L (22-30); Chloride 117.2 mmol/L (98-107); Glucose 59 mg/dL (75-100); Sodium 147 mmol/L (137-145)
[2017-08-30 06:43] LABS: Calcium 5.7 mg/dL (8.4-10.2)
[2017-08-30 06:44] LABS: Anion Gap 16 mmol/L; Potassium 2.7 mmol/L (3.6-5.0)
--- NOTE | 2017-08-30 09:21 | Progress Note ---
Assessment and Plan Assessment and plan: --Urinary tract infection; empiric antibiotics with Rocephin, urine cultures --Severe hypokalemia; replace per protocol and monitor levels --Hypocalcemia; replacement therapy --Chest Pain; resolved Cardiology evaluation and recommendation noted and appreciated Echocardiogram: Within normal limits, No further cardiac workup --Intractable nausea vomiting; CT abdomen and pelvis no acute abnormalities, continue Protonix --Dehydration; resolved; Continue supportive care --DVT prophylaxis; Lovenox Follow electrolytes, follow urine cultures Possible discharge home tomorrow if stable History Interval history: Patient seen and evaluated medical records reviewed A new events reported by the nursing staff Still has mild chest pain, probably noncardiac Potassium levels are very low Denies nausea vomiting or abdominal pain Hospitalist Physical - Constitutional Vitals: Temp Pulse Resp BP Pulse Ox 97.9 F 53 L 23 119/77 99 08/30/17 04:06 08/30/17 04:06 08/30/17 05:37 08/30/17 04:06 08/30/17 04:06 General appearance: Present: no acute distress, well-nourished - EENT Eyes: Present: PERRL, EOM intact - Neck Neck: Present: supple, normal ROM - Respiratory Respiratory effort: normal Respiratory: bilateral: diminished, negative: rales, rhonchi, wheezing - Cardiovascular Rhythm: regular Heart Sounds: Present: S1 & S2 - Extremities Extremities: no ischemia, No edema - Abdominal General gastrointestinal: soft, non-tender, non-distended, normal bowel sounds - Integumentary Integumentary: Present: clear, warm - Psychiatric Psychiatric: appropriate mood/affect, cooperative - Neurologic Neurologic: CNII-XII intact, moves all extremities Results - Labs CBC & Chem 7: 08/30/17 05:40 08/30/17 05:40 Labs: Laboratory Last Values WBC 3.0 K/mm3 (4.5-11.0) L 08/30/17 05:40 RBC 4.01 M/mm3 (3.65-5.03) 08/30/17 05:40 Hgb 11.9 gm/dl (11.8-15.2) D 08/30/17 05:40 Hct 35.7 % (35.5-45.6) D 08/30/17 05:40 MCV 89 fl (84-94) 08/30/17 05:40 MCH 30 pg (28-32) 08/30/17 05:40 MCHC 33 % (32-34) 08/30/17 05:40 RDW 13.0 % (13.2-15.2) L 08/30/17 05:40 Plt Count 133 K/mm3 (140-440) L 08/30/17 05:40 Lymph % (Auto) 9.1 % (13.4-35.0) L 08/29/17 02:07 [place] % (Auto) Epidemiology Investigator 08/30/17 05:40 Eos % (Auto) 0.7 % (0.0-4.3) 08/29/17 02:07 Baso % (Auto) 0.4 % (0.0-1.8) 08/29/17 02:07 Lymph # 0.7 K/mm3 (1.2-5.4) L 08/29/17 02:07 [place] # 0.7 K/mm3 (0.0-0.8) 08/29/17 02:07 Eos # 0.1 K/mm3 (0.0-0.4) 08/29/17 02:07 Baso # 0.0 K/mm3 (0.0-0.1) 08/29/17 02:07 Seg Neutrophils % 81.6 % (40.0-70.0) H 08/29/17 02:07 Seg Neutrophils # 6.6 K/mm3 (1.8-7.7) 08/29/17 02:07 Sodium 147 mmol/L (137-145) H 08/30/17 05:40 Potassium 2.7 mmol/L (3.6-5.0) L* D 08/30/17 05:40 Chloride 117.2 mmol/L (98-107) H 08/30/17 05:40 Carbon Dioxide 17 mmol/L (22-30) L D 08/30/17 05:40 Anion Gap 16 mmol/L 08/30/17 05:40 BUN 16 mg/dL (9-20) 08/30/17 05:40 Creatinine 0.7 mg/dL (0.8-1.5) L 08/30/17 05:40 Estimated GFR > 60 ml/min 08/30/17 05:40 BUN/Creatinine Ratio 23 % 08/30/17 05:40 Glucose 59 mg/dL (75-100) L 08/30/17 05:40 Hemoglobin A1c 5.2 % (4-6) 08/30/17 05:40 Calcium 5.7 mg/dL (8.4-10.2) L* D 08/30/17 05:40 Troponin T < 0.010 ng/mL (0.00-0.029) 08/29/17 07:39 Lipase 21 units/L (13-60) 08/29/17 02:07 Urine Color Yellow (Yellow) 08/29/17 08:22 Urine Turbidity Clear (Clear) 08/29/17 08:22 Urine pH 5.0 (5.0-7.0) 08/29/17 08:22 Ur Specific [place] 1.033 (1.003-1.030) H 08/29/17 08:22 Urine Protein 30 mg/dl mg/dL (Negative) 08/29/17 08:22 Urine Glucose (UA) Neg mg/dL (Negative) 08/29/17 08:22 Urine Ketones 80 mg/dL (Negative) 08/29/17 08:22 Urine Blood Neg (Negative) 08/29/17 08:22 Urine Nitrite Neg (Negative) 08/29/17 08:22 Urine Bilirubin Neg (Negative) 08/29/17 08:22 Urine Urobilinogen 4.0 mg/dL (<2.0) 08/29/17 08:22 Ur Leukocyte Esterase Neg (Negative) 08/29/17 08:22 Urine WBC (Auto) 3.0 /HPF (0.0-6.0) 08/29/17 08:22 Urine RBC (Auto) 6.0 /HPF (0.0-6.0) 08/29/17 08:22 Urine Bacteria (Auto) 1+ /HPF (Negative) 08/29/17 08:22 Urine Mucus 3+ /HPF 08/29/17 08:22
--- NOTE | 2017-08-30 09:22 | Progress Note ---
Assessment and Plan Epigastric pain abdominal CT -no acute findings. Nausea Projectile vomiting Marijuana use Echocardiogram done today, results pending. Recheck labs. Subjective Date of service: 08/30/17 Interval history: Patient denies chest pain. Reports improved epigastric pain. He denies nausea and vomiting. Multiple metabolic abnormalities on morning labs. Objective Vital Signs Temp Pulse Pulse Resp BP Pulse Ox 08/30/17 05:37 23 08/30/17 04:06 97.9 F 53 L 18 119/77 99 08/29/17 23:52 98.5 F 61 18 114/71 98 08/29/17 20:43 84 23 96 08/29/17 19:59 98.2 F 69 18 133/79 98 08/29/17 17:36 75 126/72 97 08/29/17 12:57 79 117/75 98 08/29/17 12:52 149/69 08/29/17 10:45 78 11 L 142/79 99 08/29/17 10:30 91 H 11 L 130/71 98 08/29/17 10:15 76 8 L 123/84 99 08/29/17 10:00 76 12 120/77 99 08/29/17 09:45 73 11 L 120/77 98 08/29/17 09:30 73 17 117/71 99 08/29/17 09:17 70 - Physical Examination General: No Apparent Distress HEENT: Positive: PERRL Neck: Positive: trachea midline Cardiac: Positive: Reg Rate and Rhythm Lungs: Positive: Decreased Breath Sounds Neuro: Positive: Grossly Intact Extremities: Present: normal - Labs and Meds CBC 08/30/17 Range/Units 05:40 WBC 3.0 L (4.5-11.0) K/mm3 RBC 4.01 (3.65-5.03) M/mm3 Hgb 11.9 D (11.8-15.2) gm/dl Hct 35.7 D (35.5-45.6) % Plt Count 133 L (140-440) K/mm3 Comprehensive Metabolic Panel 08/30/17 Range/Units 05:40 Sodium 147 H (137-145) mmol/L Potassium 2.7 L* D (3.6-5.0) mmol/L Chloride 117.2 H (98-107) mmol/L Carbon Dioxide 17 L D (22-30) mmol/L BUN 16 (9-20) mg/dL Creatinine 0.7 L (0.8-1.5) mg/dL Glucose 59 L (75-100) mg/dL Calcium 5.7 L* D (8.4-10.2) mg/dL
[2017-08-30 10:12] LABS: Basophils % (Manual) 0 % (0.0-1.8); Blastocytes % (Manual) 0 %
[2017-08-30 10:13] LABS: Diff Status Complete; RBC Morphology Normal
--- NOTE | 2017-08-30 11:17 | Ultrasound Report ---
ULTRASOUND ABDOMEN COMPLETE: TECHNIQUE: Transabdominal ultrasound with color Doppler interrogation. HISTORY: abdominal pain. COMPARISON: CT abdomen pelvis without contrast performed 08/29/17. FINDINGS: LIVER: Normal. BILIARY SYSTEM: Normal. PANCREAS: Normal. SPLEEN: Normal. KIDNEYS: The kidneys are slightly echogenic but normal size. This could indicate mild medical renal disease.. AORTA/IVC: Normal. ASCITES: None. IMPRESSION: Slightly echogenic kidneys which could represent mild medical renal disease. Otherwise, unremarkable exam of the abdomen.
[2017-08-30] MEDS: LOVENOX SUB-Q SCH (11:53)
[2017-08-30] MEDS: cefTRIAXone 1 GM in NACL 0.9% 20 ML IV SCH (11:53)
[2017-08-30] MEDS: PROTONIX IV SCH (11:53)
[2017-08-30] MEDS ORDERED: K-DUR PO ONE ×2 (16:27→18:30)
[2017-08-30] MEDS: TUMS PO SCH (22:09)
[2017-08-31 07:34] LABS: BUN/Creatinine Ratio 14; Blood Urea Nitrogen 15 mg/dL (9-20); Calcium 9.1 mg/dL (8.4-10.2); Carbon Dioxide 24 mmol/L (22-30); Chloride 103.6 mmol/L (98-107); Glucose 84 mg/dL (75-100); Potassium 4.1 mmol/L (3.6-5.0); Sodium 142 mmol/L (137-145)
[2017-08-31 07:40] LABS: Anion Gap 19 mmol/L
[2017-08-31 09:52] VITALS: BP 139/87
[2017-08-31] MEDS: TUMS PO SCH (09:55)
[2017-08-31] MEDS: LOVENOX SUB-Q SCH (09:56)
[2017-08-31] MEDS: cefTRIAXone 1 GM in NACL 0.9% 20 ML IV SCH (09:57)
[2017-08-31] MEDS: PROTONIX IV SCH (10:01)
--- NOTE | 2017-08-31 11:14 | Progress Note ---
Assessment and Plan Epigastric pain abdominal CT -no acute findings. Nausea Projectile vomiting Marijuana use Echo is showing normal LVEF Conservative cardiac management. Subjective Date of service: 08/31/17 Interval history: Patient has no complaints. Wants to go home. Objective Vital Signs Temp Pulse Pulse Resp Resp BP BP 08/31/17 09:51 97.6 F 69 18 139/87 08/31/17 04:56 97.3 F L 60 20 119/78 08/31/17 00:30 97.8 F 64 20 116/78 08/30/17 22:00 80 18 08/30/17 21:22 98.2 F 61 20 134/69 08/30/17 20:13 18 08/30/17 19:10 79 Pulse Ox 08/31/17 09:51 100 08/31/17 04:56 99 08/31/17 00:30 97 08/30/17 22:00 08/30/17 21:22 100 08/30/17 20:13 08/30/17 19:10 - Physical Examination General: No Apparent Distress HEENT: Positive: PERRL Neck: Positive: trachea midline Cardiac: Positive: Reg Rate and Rhythm Lungs: Positive: Decreased Breath Sounds Neuro: Positive: Grossly Intact Extremities: Present: normal - Labs and Meds Comprehensive Metabolic Panel 08/31/17 Range/Units 06:22 Sodium 142 (137-145) mmol/L Potassium 4.1 D (3.6-5.0) mmol/L Chloride 103.6 (98-107) mmol/L Carbon Dioxide 24 D (22-30) mmol/L BUN 15 (9-20) mg/dL Creatinine 1.1 D (0.8-1.5) mg/dL Glucose 84 (75-100) mg/dL Calcium 9.1 D (8.4-10.2) mg/dL
--- NOTE | 2017-08-31 15:10 | Discharge Summary ---
Providers - Providers Date of Admission: 08/29/17 09:42 Date of discharge: 08/31/17 Attending physician: LAVELL IBRAHIM 08/29/17 Consult to Cardiac Rehabilitation [CONS] Routine Reason For Exam: Phase 1 08/29/17 08:39 Consult to Physician [CONS] Urgent Consulting Provider: CRISTIANO BAZAN Reason For Exam: cp Notified:: yes Primary care physician: CRISTIANO WEEMS Hospitalization Reason for admission: chest pain/abdominal pain Condition: Stable Pertinent studies: CT abdomen and pelvis; no acute abnormalities Abdominal ultrasound; echogenic kidneys Echo; ejection fraction 55-60% Chest x-ray; normal study Hospital course: 22-year-old male patient with no significant past medical history was admitted through emergency room with chest pain of 2 days duration patient was initially evaluated and admitted to the hospital symptomatically managed Evaluated by invasive manager, echocardiogram, EKG, cardiac enzymes are within normal limits Chest pain probably secondary to gastroesophageal reflux disease versus musculoskeletal Patient also had abdominal pain CT scan of the abdomen and abdominal ultrasound no acute abnormality noted However urine analysis is consistent with UTI, managed with Rocephin, and is being discharged home on Bactrim Patient is comfortable no new complaints vital signs are stable [id number] evaluation physical examination done by ia prior to discharge is unremarkable as detailed below Patient is stable at the time of discharge Discharge diagnosis; --Urinary tract infection; discharged on Bactrim DS, cultures negative to date --Severe hypokalemia; corrected --Chest Pain; probably secondary to gastroesophageal reflux disease, advised [id number] antacids --Intractable nausea vomiting; secondary to GERD, --Dehydration; resolved; Disposition: TO HOME OR SELFCARE Time spent for discharge: 32 min Core Measure Documentation - Palliative Care Palliative Care/ Comfort Measures: Not Applicable - Core Measures Any of the following diagnoses?: none Exam - Constitutional Vitals: Temp Pulse Resp BP Pulse Ox 97.6 F 69 18 139/87 100 08/31/17 09:51 08/31/17 09:51 08/31/17 09:51 08/31/17 09:51 08/31/17 09:51 General appearance: Present: no acute distress, well-nourished - EENT Eyes: Present: PERRL, EOM intact - Neck Neck: Present: supple, normal ROM - Respiratory Respiratory effort: normal Respiratory: negative: rales, rhonchi, wheezing - Cardiovascular Rhythm: regular Heart Sounds: Present: S1 & S2 - Extremities Extremities: no ischemia, No edema Peripheral Pulses: within normal limits - Abdominal General gastrointestinal: Present: soft, non-tender, non-distended, normal bowel sounds - Integumentary Integumentary: Present: clear, warm - Musculoskeletal Musculoskeletal: strength equal bilaterally, generalized weakness - Psychiatric Psychiatric: appropriate mood/affect, cooperative - Neurologic Neurologic: CNII-XII intact, moves all extremities Plan Activity: no restrictions Diet: regular Special Instructions: smoking cessation Additional Instructions: Smoking cessation counseling done, advised nicotine patch Follow up with: CRISTIANO WEEMS MD [Primary Care Provider] - 3-5 Days Prescriptions: Sulfamethoxazole/Trimethoprim [Bactrim Ds Tablet] 1 each PO BID #14 tablet
[2017-09-01] MEDS ORDERED: PROTONIX PO SCH (10:00)
== END 2017-08-31 16:00 | disposition home or self-care (01) | DRG 392 ==
LOC: ED 01:10 → 4A 09:42
PROVIDERS: ADMIT Internal Medicine; ATTEND Internal Medicine
DX: K21.9 Gastro-esophageal reflux disease without esophagitis (principal); N39.0 Urinary tract infection, site not specified; R11.2 Nausea with vomiting, unspecified; E87.6 Hypokalemia; E86.0 Dehydration; F17.200 Nicotine dependence, unspecified, uncomplicated; F12.10 Cannabis abuse, uncomplicated
CPT/HCPCS: 36415; 71010; 74176; 76700; 80048; 81001; 83036; 83690; 83735; 84484; 85007; 85025; 87086; 93005; 93010; 93306; 96374; 96375; 99406; C9113; J0696; J1650; J2270; J2405; J7030

== ENCOUNTER 2018-02-11 11:09 | Emergency (ER) | payer SELFPAY | END 2018-02-11 11:10 | disposition left against medical advice (07) | LOC: ED 11:09 | DX: H92.09 Otalgia, unspecified ear (principal); Z53.21 Procedure and treatment not carried out due to patient leaving prior to being seen by health care provider ==

== ENCOUNTER 2019-08-11 13:27 | Emergency (ER) | payer SELFPAY ==
--- NOTE | 2019-08-11 14:36 | Event Note ---
ED Screening Note Date of service: 08/11/19 Time: 14:33 ED Screening Note: 24 y o male presents to Ed cc of constant chest pain radiating to back and difficulty inhaling no PMH This initial assessment/diagnostic orders/clinical plan/treatment(s) is/are subject to change based on patients health status, clinical progression and re- assessment by fellow clinical providers in the ED. Further treatment and workup at subsequent clinical providers discretion. Patient/guardian urged not to elope from the ED as their condition may be serious if not clinically assessed and managed. Initial orders include: labs/cxr
[2019-08-11 15:20] LABS: Basophils % (Auto) 0.5 % (0.0-1.8); Eosinophils # (Auto) 0.1 K/mm3 (0.0-0.4); Eosinophils % (Auto) 0.9 % (0.0-4.3); Hematocrit 47.3 % (35.5-45.6); Hemoglobin 15.3 gm/dl (11.8-15.2); Lymphocytes # (Auto) 2.1 K/mm3 (1.2-5.4); Lymphocytes % (Auto) 37.5 % (13.4-35.0); Mean Corpuscular HGB Conc 32 % (32-34); Mean Corpuscular Volume 89 fl (84-94); Monocytes # (Auto) 0.4 K/mm3 (0.0-0.8); Monocytes % (Auto) 7.9 % (0.0-7.3); Platelet Count 195 K/mm3 (140-440); Red Blood Count 5.33 M/mm3 (3.65-5.03)
--- NOTE | 2019-08-11 15:28 | XRay Report ---
CHEST PA AND LATERAL VIEWS INDICATION: Dyspnea. COMPARISON: 08/29/2017 FINDINGS: Support devices: None Heart: Normal and unchanged Lungs/Pleura: No acute pulmonary or pleural findings. IMPRESSION: 1. No significant abnormality and no interval change. Signer Name: Amandeep Long MD Signed: 08/11/2019 3:24 PM Workstation Name: [id number]
[2019-08-11 15:30] LABS: BUN/Creatinine Ratio 12; Blood Urea Nitrogen 14 mg/dL (9-20); Calcium 9.9 mg/dL (8.4-10.2); Hemolysis Index 11
--- NOTE | 2019-08-11 19:14 | Emergency Department Report ---
ED Chest Pain HPI - General Chief Complaint: Dyspnea/Respdistress Stated Complaint: CHEST TIGHTNESS Time Seen by Provider: 08/11/19 18:27 Source: patient Mode of arrival: Ambulatory Limitations: No Limitations - History of Present Illness Initial Comments: Mr. Cronin is a 24-year-old male who presents with chest pain for 3 days. Shortness of breath. Pain is worse with movement. Sore. Worse with inspiration. Symptoms. Gradual onset. Intermittent. Radiation to the back. Difficult taking a deep breath. N 2016, Mr. Cronin was admitted to the hospital service for evaluation of chest pain. He was evaluated by typing element machine operator. Echocardiogram EKG cardiac enzymes were normal. MD Complaint: chest pain -: Gradual, days(s) (3) Onset: during rest Pain Location: substernal Pain Radiation: back Severity scale (0 -10): 6 Quality: aching, sharp, dull Consistency: intermittent Worsens With: inspiration - Related Data Previous Rx's Medication Instructions Recorded Last Taken Type Ondansetron [Zofran ODT TAB] 4 mg PO Q8HR PRN #14 tab.rapdis 07/21/17 08/28/17 Rx Sulfamethoxazole/Trimethoprim 1 each PO BID #14 tablet 08/31/17 Unknown Rx [Bactrim Ds Tablet] Ibuprofen [Motrin 800 MG tab] 800 mg PO TID 5 Days #15 tablet 08/11/19 Unknown Rx Allergies Allergy/AdvReac Type Severity Reaction Status Date / Time No Known Allergies Allergy Verified 07/20/17 23:56 Heart Score - HEART Score History: Slightly suspicious EKG: Non-specific Age: < 45 Risk factors: No known risk factors Troponin: < normal limit HEART Score: 1 ED Review of Systems ROS: Stated complaint: CHEST TIGHTNESS Other details as noted in HPI Comment: All other systems reviewed and negative Constitutional: denies: fever, malaise Respiratory: shortness of breath Cardiovascular: chest pain ED Past Medical Hx - Past Medical History Previous Medical History?: No Hx Hypertension: No Hx Arthritis: No Hx HIV: No - Surgical History Past Surgical History?: No - Social History Smoking Status: Current Every Day Smoker - Medications Home Medications: Home Medications Medication Instructions Recorded Confirmed Last Taken Type Ondansetron [Zofran ODT TAB] 4 mg PO Q8HR PRN #14 tab.rapdis 07/21/17 08/29/17 08/28/17 Rx Sulfamethoxazole/Trimethoprim 1 each PO BID #14 tablet 08/31/17 Unknown Rx [Bactrim Ds Tablet] Ibuprofen [Motrin 800 MG tab] 800 mg PO TID 5 Days #15 tablet 08/11/19 Unknown Rx ED Physical Exam - General Limitations: No Limitations General appearance: alert, in no apparent distress - Head Head exam: Present: atraumatic, normocephalic - Eye Eye exam: Present: normal appearance - ENT ENT exam: Present: mucous membranes moist - Neck Neck exam: Present: normal inspection, full ROM - Respiratory Respiratory exam: Present: normal lung sounds bilaterally. Absent: respiratory distress, wheezes, rales, rhonchi - Cardiovascular Cardiovascular Exam: Present: regular rate, normal rhythm, normal heart sounds. Absent: systolic murmur, diastolic murmur, rubs, gallop - GI/Abdominal GI/Abdominal exam: Present: soft, normal bowel sounds. Absent: distended, tenderness, guarding, rebound - Rectal Rectal exam: Present: deferred - Extremities Exam Extremities exam: Present: normal inspection - Neurological Exam Neurological exam: Present: alert, oriented X3 - Psychiatric Psychiatric exam: Present: normal affect, normal mood - Skin Skin exam: Present: warm, dry, intact, normal color. Absent: rash ED Course Vital Signs 08/11/19 08/11/19 13:31 19:00 Temperature 98.2 F Pulse Rate 90 72 Respiratory 20 10 L Rate Blood Pressure 126/90 Blood Pressure 135/87 [Left] O2 Sat by Pulse 98 97 Oximetry AIME score - Aime Score Age > 65: (0) No Aspirin use within the Past 7 Days: (0) No 3 or more CAD Risk Factors: (0) No 2 or more Angina events in past 24 hrs: (0) No Known CAD with more than 50% Stenosis: (0) No Elevated Cardiac Markers: (0) No ST Deviation Greater than 0.5mm: (0) No AIME Score: 0 ED Medical Decision Making - Lab Data Result diagrams: 08/11/19 15:00 08/11/19 15:00 Laboratory Results - last 24 hr 08/11/19 08/11/19 15:00 15:00 WBC 5.6 RBC 5.33 H Hgb 15.3 H Hct 47.3 H MCV 89 MCH 29 MCHC 32 RDW 13.0 L Plt Count 195 Lymph % (Auto) 37.5 H [place] % (Auto) 7.9 H Eos % (Auto) 0.9 Baso % (Auto) 0.5 Lymph # 2.1 [place] # 0.4 Eos # 0.1 Baso # 0.0 Seg Neutrophils % 53.2 Seg Neutrophils # 3.0 Sodium 141 Potassium 3.9 Chloride 104.3 Carbon Dioxide 26 Anion Gap 15 BUN 14 Creatinine 1.2 Estimated GFR > 60 BUN/Creatinine Ratio 12 Glucose 80 Calcium 9.9 Troponin T < 0.010 - EKG Data 08/11/19 19:12 EKG obtained 52 rate 70 bpm normal axis normal intervals ST elevation in V2 V3 V4 repolarization abnormality versus pericarditis pattern is unchanged from 09/08/2017 - Radiology Data Radiology results: report reviewed Chest radiograph two-view no acute process according to radiology impression - Medical Decision Making Mr. Cronin presents with chest pain for 3 days associated with inspiration differential diagnoses includes chest wall pain, pleurisy, pericarditis. I have prescribed high-dose ibuprofen. I have arranged for cardiology referral to the [facility] vascular [place]. Discharged home in stable condition. Critical care attestation.: If time is entered above; I have spent that time in minutes in the direct care of this critically ill patient, excluding procedure time. ED Disposition Clinical Impression: Chest pain Disposition: DC-01 TO HOME OR SELFCARE Is pt being admited?: No Does the pt Need Aspirin: No Condition: Stable Instructions: Chest Pain (ED) Prescriptions: Ibuprofen [Motrin 800 MG tab] 800 mg PO TID 5 Days #15 tablet Referrals: DAYDAY HERNANDEZ MD [Staff Physician] - 3-[address] [facility] [Outside] - 3-5 Days
[2019-08-11] MEDS ORDERED: IBUPROFEN 800 MG TAB PO ONE (19:51)
[2019-08-11 19:52] VITALS: BP 126/84
== END 2019-08-11 19:57 | disposition home or self-care (01) ==
LOC: ED 13:27
DX: R07.9 Chest pain, unspecified (principal); R06.02 Shortness of breath; F17.200 Nicotine dependence, unspecified, uncomplicated
CPT/HCPCS: 36415; 71046; 80048; 84484; 85025; 93005; 93010

== ENCOUNTER 2020-01-16 17:46 | Emergency (ER) | payer SELFPAY ==
[2020-01-16] MEDS ORDERED: ASPIRIN 325 MG TAB PO ONE (18:24)
--- NOTE | 2020-01-16 18:29 | Emergency Department Report ---
HPI - General Chief Complaint: Chest Pain PUI?: No Time Seen by Provider: 01/16/20 18:12 - HPI HPI: Room 17 The patient is a 25-year-old male present with a chief complaint of chest pain. Patient states he has had intermittent left-sided and substernal chest pain described as tightness and stabbing for 1 week. Patient admits to shortness of breath and occasional diaphoresis with his pain. Patient denies pleurisy nausea or vomiting. The patient states he awakened this morning and noticed numbness in his left upper extremity and pain in his back but did not resolve prompting him to come to the emergency department. The patient states leaning/hunching forward improves his pain. Patient states approximate 2 weeks ago he drove to [place] and back [address] Patient currently gives his pain a score of 7/10 ED Past Medical Hx - Past Medical History Previous Medical History?: Yes - Surgical History Past Surgical History?: No - Family History Family history: no significant, other (Patient states there is no history of coronary artery disease in his family and no history of sudden cardiac .) - Social History Smoking Status: Current Every Day Smoker (1/2 pack/day) Substance Use Type: None (Denies illicit drug use), Alcohol (Occasional) - Medications Home Medications: Home Medications Medication Instructions Recorded Confirmed Last Taken Type Ondansetron [Zofran ODT TAB] 4 mg PO Q8HR PRN #14 tab.rapdis 07/21/17 08/29/17 08/28/17 Rx Sulfamethoxazole/Trimethoprim 1 each PO BID #14 tablet 08/31/17 Unknown Rx [Bactrim Ds Tablet] Ibuprofen [Motrin 800 MG tab] 800 mg PO TID 5 Days #15 tablet 08/11/19 Unknown Rx Aspirin 325 mg PO QDAY #14 tablet 01/16/20 Unknown Rx ED Review of Systems ROS: Stated complaint: CP/BACK PAIN/FATIGUE/LIGHT HEADED Other details as noted in HPI Constitutional: diaphoresis Eyes: denies: eye pain ENT: denies: throat pain Respiratory: shortness of breath Cardiovascular: chest pain Endocrine: no symptoms reported Gastrointestinal: denies: nausea, vomiting Genitourinary: denies: dysuria Musculoskeletal: back pain Neurological: denies: headache Physical Exam - Physical Exam Vital Signs: Vital Signs 05/06/20 17:51 Temperature 98.1 F Pulse Rate 91 H Respiratory 18 Rate Blood Pressure 130/92 O2 Sat by Pulse 100 Oximetry Physical Exam: GENERAL: The patient is well-developed well-nourished male lying on stretcher not appearing to be in acute distress. [] HEENT: Normocephalic. Atraumatic. Extraocular motions are intact. Patient has moist mucous membranes. NECK: Supple. No meningitic signs are noted. There is no adenopathy noted. CHEST/LUNGS: Clear to auscultation. There is no respiratory distress noted. HEART/CARDIOVASCULAR: Regular. There is no tachycardia. There is no gallop rub or murmur. No friction rub auscultated when patient leans far forward ABDOMEN: Abdomen is soft, nontender. Patient has normal bowel sounds. There is no abdominal distention. SKIN: There is no rash. There is no edema. There is no diaphoresis. NEURO: The patient is awake, alert, and oriented. The patient is cooperative. The patient has no focal neurologic deficits. The patient has normal speech MUSCULOSKELETAL: There is no evidence of acute injury. ED Course Vital Signs 01/16/20 17:51 Temperature 98.1 F Pulse Rate 91 H Respiratory 18 Rate Blood Pressure 130/92 O2 Sat by Pulse 100 Oximetry - Reevaluation(s) Reevaluation #1: 01/16/20 19:48 Patient states he feels improved after aspirin. ED Medical Decision Making - Lab Data Result diagrams: 01/16/20 18:35 01/16/20 18:35 Laboratory Tests 01/16/20 01/16/20 01/16/20 18:35 18:35 18:35 WBC 5.6 RBC 5.14 H Hgb 15.6 H Hct 45.8 H MCV 89 MCH 30 MCHC 34 RDW 12.8 L Plt Count 199 Lymph % (Auto) 37.0 H [place] % (Auto) 9.4 H Eos % (Auto) 2.1 Baso % (Auto) 1.0 Lymph # 2.1 [place] # 0.5 Eos # 0.1 Baso # 0.1 Seg Neutrophils % 50.5 Seg Neutrophils # 2.8 D-Dimer < 135.00 Sodium 139 Potassium 4.1 Chloride 101.3 Carbon Dioxide 30 Anion Gap 12 BUN 16 Creatinine 1.3 Estimated GFR > 60 BUN/Creatinine Ratio 12 Glucose 99 Calcium 10.4 H Total Creatine Kinase 213 H CK-MB (CK-2) 1.4 CK-MB (CK-2) Rel Index 0.6 Troponin T < 0.010 NT-Pro-B Natriuret Pep 19.35 - EKG Data -: EKG Interpreted by Me EKG shows normal: sinus rhythm Rate: normal - EKG Data When compared to previous EKG there are: no significant change, previous EKG unavailable Interpretation: unchanged when compared t (08/11/2019) - Radiology Data Radiology results: report reviewed (Chest x-ray), image reviewed (Chest x-ray) interpreted by me: Chest x-ray-no focal infiltrates, no pneumothorax Findings [facility] [address] [place] [address] XRay Report Signed Patient: KATHI LU MR# : [id number] : 1995 Acct:[id number] Age/Sex: 25 / M ADM Date: 01/16/20 Loc: ED Attending Dr: Ordering Physician: KAYLIN HOFFMANN Date of Service: 01/16/20 Procedure(s): XR chest routine 2V Accession Number(s): [id number] cc: KAYLIN HOFFMANN Fluoro Time In Minutes: CHEST 2 VIEWS INDICATION / CLINICAL INFORMATION: cp. Chest pain with dyspnea COMPARISON: None available. FINDINGS: SUPPORT DEVICES: None. HEART / MEDIASTINUM: No significant abnormalit y. LUNGS / PLEURA: No significant pulmonary or pleural abnormality. No pneumothorax. ADDITIONAL FINDINGS: No significant additional findings. IMPRESSION: 1. No acute findings. Signer Name: Modesto Galicia MD Signed: 01/16/2020 7:24 PM Workstation Name: [id number] Transcribed By: Dictated By: Modesto Galicia MD Electronically Authenticated By: Modesto Galicia MD Signed Date/Time: 01/16/201923 DD/ 23 TD/TT: - Differential Diagnosis Pericarditis, PE, GERD, anxiety, ACS Critical care attestation.: If time is entered above; I have spent that time in minutes in the direct care of this critically ill patient, excluding procedure time. ED Disposition Clinical Impression: Chest pain Disposition: DC-01 TO HOME OR SELFCARE Is pt being admited?: No Does the pt Need Aspirin: No Condition: Stable Instructions: Chest Pain (ED) Additional Instructions: Return to the emergency department should you develop worsening symptoms, inability to tolerate food or liquids, high fever or any other concerns Prescriptions: Aspirin 325 mg PO QDAY #14 tablet Referrals: PRIMARY CARE, [Primary Care Provider] - 3-5 Days [facility] [Provider Group] - 3-5 Days Time of Disposition: 19:49
[2020-01-16 18:46] LABS: Basophils # (Auto) 0.1 K/mm3 (0.0-0.1); Eosinophils # (Auto) 0.1 K/mm3 (0.0-0.4); Eosinophils % (Auto) 2.1 % (0.0-4.3); Hematocrit 45.8 % (35.5-45.6); Hemoglobin 15.6 gm/dl (11.8-15.2); Lymphocytes # (Auto) 2.1 K/mm3 (1.2-5.4); Mean Corpuscular HGB Conc 34 % (32-34); Mean Corpuscular Volume 89 fl (84-94); Monocytes # (Auto) 0.5 K/mm3 (0.0-0.8); Monocytes % (Auto) 9.4 % (0.0-7.3); Platelet Count 199 K/mm3 (140-440); Red Blood Count 5.14 M/mm3 (3.65-5.03); Red Cell Distribution Width 12.8 % (13.2-15.2)
[2020-01-16 19:10] LABS: Creatine Kinase MB 1.4 ng/mL (0.0-4.0)
[2020-01-16 19:11] LABS: BUN/Creatinine Ratio 12; Blood Urea Nitrogen 16 mg/dL (9-20); Calcium 10.4 mg/dL (8.4-10.2); Hemolysis Index 4
--- NOTE | 2020-01-16 19:29 | XRay Report ---
CHEST 2 VIEWS INDICATION / CLINICAL INFORMATION: cp. Chest pain with dyspnea COMPARISON: None available. FINDINGS: SUPPORT DEVICES: None. HEART / MEDIASTINUM: No significant abnormality. LUNGS / PLEURA: No significant pulmonary or pleural abnormality. No pneumothorax. ADDITIONAL FINDINGS: No significant additional findings. IMPRESSION: 1. No acute findings. Signer Name: Modesto Galicia MD Signed: 01/16/2020 7:24 PM Workstation Name: [id number]
[2020-01-16 20:23] VITALS: BP 124/81
== END 2020-01-16 20:42 | disposition home or self-care (01) ==
LOC: ED 17:46
DX: R07.89 Other chest pain (principal); R06.02 Shortness of breath; R61 Generalized hyperhidrosis; F17.200 Nicotine dependence, unspecified, uncomplicated; Z79.1 Long term (current) use of non-steroidal anti-inflammatories (NSAID); Z79.899 Other long term (current) drug therapy
CPT/HCPCS: 36415; 71046; 80048; 82550; 82553; 83880; 84484; 85025; 85379; 93005

== ENCOUNTER 2020-12-02 16:18 | Emergency (ER) | payer OTHER ==
[2020-12-02 17:26] VITALS: BP 146/78
[2020-12-02] MEDS ORDERED: IBUPROFEN 600 MG TAB PO ONE (20:00)
[2020-12-02] MEDS ORDERED: LIDOCAINE-MPF (1%) 10 MG/1 ML VIAL 5 ML INFILTRATI ONE (20:00)
[2020-12-02] MEDS ORDERED: cephALEXin 500 MG CAP PO ONE (20:00)
[2020-12-02] MEDS ORDERED: ACETAMINOPHEN 500 MG TAB PO ONE (20:01)
--- NOTE | 2020-12-02 22:45 | Emergency Department Report ---
ED Extremity Problem HPI - General Chief complaint: Extremity Injury, Upper Stated complaint: LT PINKY INFECTION/SWOLLEN Source: patient Mode of arrival: Ambulatory Limitations: No Limitations - History of Present Illness Initial comments: Patient is a 25-year-old -[place] male with no past medical history presents to the ED with complaint of acute onset persistent severe painful swollen erythematous maculopapular fluctuant rash on distal dorsal left fifth finger around the nail bed for the last 6 days. Patient states that initially there was a piece of wood that punctured his distal left fifth finger and after he pulled it out he cleaned with water and subsequently resumed his regular job. 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 Patient states that in the last 3 days, the pain in the distal left fifth finger has worsened and swelling also got worse. Patient denies fever, chills, nausea, vomiting, numbness and tingling or weakness of left fifth finger, dizziness, syncope, chest pain or shortness of breath. MD Complaint: extremity pain (Left little finger pain, swelling and erythematous rash), joint swelling (left little finger swollen erythematous rash) -: Sudden, days(s) (6) Location: left, upper extremity (Distal left little finger) History of Same: No -: Yes myalgia, No arthralgia, No fever, No associated dyspnea, No associated chest pain Radiation: distal Severity scale (0 -10): 7 Quality: aching, sharp Consistency: constant Improves with: nothing Worsens with: palpation Associated Symptoms: denies other symptoms, rash (Swollen erythematous maculopapular fluctuant severely tender rash on distal dorsal left fifth finger). denies: chest pain, shortness of breath, arthralgias - Related Data Previous Rx's Medication Instructions Recorded Last Taken Type Ondansetron [Zofran ODT TAB] 4 mg PO Q8HR PRN #14 tab.rapdis 07/21/17 08/28/17 Rx Sulfamethoxazole/Trimethoprim 1 each PO BID #14 tablet 08/31/17 Unknown Rx [Bactrim Ds Tablet] Aspirin 325 mg PO QDAY #14 tablet 01/16/20 Unknown Rx Ibuprofen [Motrin 800 MG tab] 800 mg PO Q8H PRN 5 Days #30 tablet 12/02/20 Unknown Rx cephALEXin [Keflex] 500 mg PO Q8HR #30 cap 12/02/20 Unknown Rx Allergies Allergy/AdvReac Type Severity Reaction Status Date / Time No Known Allergies Allergy Verified 07/20/17 23:56 ED Review of Systems ROS: Stated complaint: LT PINKY INFECTION/SWOLLEN Other details as noted in HPI Constitutional: denies: chills, fever Eyes: denies: eye pain, eye discharge, vision change ENT: denies: ear pain, throat pain Respiratory: denies: cough, shortness of breath, wheezing Cardiovascular: denies: chest pain, palpitations Endocrine: no symptoms reported Gastrointestinal: denies: abdominal pain, nausea, diarrhea Genitourinary: denies: urgency, dysuria Musculoskeletal: joint swelling, arthralgia (Painful swollen erythematous maculopapular rash on distal dorsal left fifth finger). denies: back pain Skin: rash, change in color, other (Painful swollen erythematous maculopapular fluctuant rash on distal dorsal left fifth finger). denies: lesions Neurological: denies: headache, weakness, paresthesias Psychiatric: denies: anxiety, depression Hematological/Lymphatic: denies: easy bleeding, easy bruising ED Past Medical Hx - Past Medical History Hx Hypertension: No Hx Arthritis: No Hx HIV: No - Social History Smoking Status: Current Every Day Smoker Substance Use Type: Alcohol, Marijuana - Medications Home Medications: Home Medications Medication Instructions Recorded Confirmed Last Taken Type Ondansetron [Zofran ODT TAB] 4 mg PO Q8HR PRN #14 tab.rapdis 07/21/17 08/29/17 08/28/17 Rx Sulfamethoxazole/Trimethoprim 1 each PO BID #14 tablet 08/31/17 Unknown Rx [Bactrim Ds Tablet] Aspirin 325 mg PO QDAY #14 tablet 01/16/20 Unknown Rx Ibuprofen [Motrin 800 MG tab] 800 mg PO Q8H PRN 5 Days #30 tablet 12/02/20 Unknown Rx cephALEXin [Keflex] 500 mg PO Q8HR #30 cap 12/02/20 Unknown Rx ED Physical Exam - General Limitations: No Limitations General appearance: alert, in no apparent distress - Head Head exam: Present: atraumatic, normocephalic, normal inspection - Eye Eye exam: Present: normal appearance, PERRL, EOMI Pupils: Present: normal accommodation - ENT ENT exam: Present: normal exam, normal orophraynx, mucous membranes moist, TM's normal bilaterally, normal external ear exam - Neck Neck exam: Present: normal inspection, full ROM - Respiratory Respiratory exam: Present: normal lung sounds bilaterally. Absent: respiratory distress, wheezes, rales, rhonchi, stridor, chest wall tenderness, accessory muscle use, decreased breath sounds, prolonged expiratory - Cardiovascular Cardiovascular Exam: Present: regular rate, normal rhythm, normal heart sounds. Absent: systolic murmur, diastolic murmur, rubs, gallop - GI/Abdominal GI/Abdominal exam: Present: soft, normal bowel sounds. Absent: tenderness, guarding, rebound, hyperactive bowel sounds, hypoactive bowel sounds, organomegaly - Extremities Exam Extremities exam: Present: normal inspection, full ROM, tenderness (Palpable severely tender and swollen distal dorsal left fifth finger around the nail bed due to erythematous maculopapular fluctuant rash), normal capillary refill. Absent: calf tenderness - Back Exam Back exam: Present: normal inspection, full ROM. Absent: tenderness, CVA tenderness (R), CVA tenderness (L), muscle spasm, paraspinal tenderness, vertebral tenderness - Neurological Exam Neurological exam: Present: alert, oriented X3, CN II-XII intact, normal gait, reflexes normal - Psychiatric Psychiatric exam: Present: normal affect, normal mood - Skin Skin exam: Present: warm, dry, intact, normal color, rash (Erythematous maculopapular fluctuant severely tender swollen rash on distal dorsal left fifth finger around the nail bed), erythema ED Course Vital Signs 12/02/20 17:22 Temperature 98.8 F Pulse Rate 74 Respiratory 18 Rate Blood Pressure 146/78 O2 Sat by Pulse 98 Oximetry - I & D Left Distal Dorsal Finger Type of Procedure: Simple Site: Distal dorsal left fifth finger Blade Size: 11 I & D Procedure: betadine prep, sterile drapes applied, sterile dressing applied, gauze wick placed Progress: The distal left fifth finger was cleaned thoroughly with normal saline and Betadine solution used to sterilize the area. 3 mL of lidocaine 1% solution was infiltrated on the distal left fifth finger. When the anesthesia was fully achieved, the swollen fluctuant area was incised and copious thick purulent discharge drained from the area. The wound was then cleaned thoroughly with normal saline and completely debrided. A sterile 2 x 2 gauze was inserted into the wound as a packing material. The wound was then dressed appropriately with 4 x 4 gauze and Kerlix and the patient tolerated procedure well. ED Medical Decision Making - Medical Decision Making This is a 25-year-old -U[place] male with no past medical history presents to the ED with complaint of acute onset persistent severe painful swollen erythematous maculopapular fluctuant rash on distal dorsal left fifth finger around the nail bed for the last 6 days. Patient states that initially there was a piece of wood that punctured his distal left fifth finger and after he pulled it out he cleaned with water and subsequently resumed his regular job. 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 Patient states that in the last 3 days, the pain in the distal left fifth finger has worsened and swelling also got worse. In the ED, patient is alert and oriented x3 and is not in any distress. Patient was treated for pain in the ED and also received oral antibiotics Keflex 1 g p.o. x1. The distal left small finger swollen erythematous maculopapular fluctuant rash was incised and drained per protocol. Patient tolerated the procedure well. The wound was then cleaned and packed, and dressed appropriately and the patient will discharge home on pain medications and oral antibiotics. Patient is advised return to the ED immediately if symptoms get worse. Patient was otherwise advised to follow-up with his primary care physician in 7 to 10 days for reevaluation. - Differential Diagnosis Cellulitis; paronychia; folliculitis; finger injury Critical care attestation.: If time is entered above; I have spent that time in minutes in the direct care of this critically ill patient, excluding procedure time. ED Disposition Clinical Impression: Cellulitis of left little finger, Paronychia of left little finger Disposition: DC-01 TO HOME OR SELFCARE Is pt being admited?: No Does the pt Need Aspirin: No Condition: Stable Instructions: Cellulitis, Adult, [id number], Paronychia, [id number] Additional Instructions: Take medication with food, drink plenty of fluids and follow-up with your primary care physician in 7 to 10 days for reevaluation. Return to the ED immediately if symptoms get worse. Prescriptions: cephALEXin [Keflex] 500 mg PO Q8HR #30 cap Ibuprofen [Motrin 800 MG tab] 800 mg PO Q8H PRN 5 Days #30 tablet PRN Reason: Pain , Severe (7-10) Referrals: [facility] [Provider Group] - 7-10 days Forms: Work/School Release Form(ED) Time of Disposition: 22:52 Print Language: ICELANDIC
== END 2020-12-02 23:00 | disposition home or self-care (01) ==
LOC: ED 16:18
DX: L03.012 Cellulitis of left finger (principal); F17.200 Nicotine dependence, unspecified, uncomplicated; F12.90 Cannabis use, unspecified, uncomplicated; Z79.899 Other long term (current) drug therapy

== ENCOUNTER 2021-07-16 08:20 | Emergency (ER) | payer SELFPAY ==
[2021-07-16] MEDS ORDERED: diphenhydrAMINE 50 MG/ML VIAL IV ONE (08:54)
[2021-07-16] MEDS ORDERED: METOCLOPRAMIDE 10 MG/2 ML INJ IV PRN (08:54)
[2021-07-16] MEDS ORDERED: SODIUM CHLORIDE 0.9% 1000 ML 1,000 ML IV ONE (08:55)
[2021-07-16] MEDS ORDERED: ACETAMINOPHEN 325 MG TAB PO ONE (08:55)
--- NOTE | 2021-07-16 08:55 | Emergency Department Report ---
ED Headache HPI - General Chief Complaint: Headache Stated Complaint: PAIN BACK OF NECK AND HEAD Time Seen by Provider: 07/16/21 08:43 Source: patient Exam Limitations: no limitations - History of Present Illness Initial Comments: 26-year-old male who denies any significant past medical history presents to the ER with complaints of headache and neck pain. Patient states that his symptoms started yesterday. Patient states that he has had a headache that starts in his forehead, and radiates around into the back of his head down into his neck and behind his eyes. And he also states that has been having this sharp pain behind his left ear. Patient states that the pain is constant. He took some 800 mg ibuprofen last night and went to sleep and therefore unable to see whether the ibuprofen helped or not. Patient reports nausea but no vomiting. He reports a stinging sensation in his left nare but no nasal congestion or rhinorrhea. He denies any fever, chills or cough. He denies any head injury. He states that he has been around his daughter who had a cold recently. He states that he has had headaches in the past, somewhat similar to what he is having but the difference with this headache is that he is having associated with pain in his neck, and when he moves his eye left and right he is also having pain. He has never been officially diagnosed with any type of tension, cluster or migraine headaches. He denies any recent travel out of the country. He denies any focal numbness, tingling, weakness, vision changes, speech changes or any additional symptoms at this time. Timing/Duration: other (1 day ago ) Quality: constant, pressure Allergies/Adverse Reactions: Allergies No Known Allergies Allergy (Verified 07/20/17 23:56) Home Medications: Ambulatory Orders Aspirin 325 mg PO QDAY #14 tablet 01/16/20 Cetirizine HCl [ZyrTEC 10mg cap] 10 mg PO DAILY #30 capsule 07/16/21 Fluticasone [Flonase] 2 spray NS QDAY #1 bottle 07/16/21 Ketorolac [Toradol] 10 mg PO Q6H PRN #20 tablet 07/16/21 Ondansetron [Zofran ODT TAB] 4 mg PO Q8HR PRN #14 tab.rapdis 07/16/21 ED Review of Systems ROS: Stated complaint: PAIN BACK OF NECK AND HEAD Other details as noted in HPI Comment: All other systems reviewed and negative Constitutional: diaphoresis. denies: chills, fever Eyes: denies: eye pain, eye discharge, vision change ENT: other (+burning sensation left nare ). denies: ear pain, throat pain, dental pain, hearing loss, epistaxis, congestion Respiratory: denies: cough, shortness of breath, SOB with exertion, SOB at rest, wheezing Cardiovascular: denies: chest pain, palpitations Endocrine: no symptoms reported Gastrointestinal: nausea. denies: abdominal pain, vomiting, diarrhea, constipation, hematemesis, hematochezia Genitourinary: denies: urgency, dysuria, frequency, hematuria, discharge, testicular pain, testicular mass Skin: denies: rash, lesions, change in color, change in hair/nails, pruritus Neurological: headache. denies: numbness, paresthesias, confusion, abnormal gait, vertigo Psychiatric: denies: anxiety, depression, auditory hallucinations, visual hallucinations, homicidal thoughts, suicidal thoughts Hematological/Lymphatic: denies: easy bleeding, easy bruising, swollen glands ED Past Medical Hx - Past Medical History Hx Hypertension: No Hx Arthritis: No Hx HIV: No - Social History Smoking Status: Current Every Day Smoker Substance Use Type: Alcohol, Marijuana - Medications Home Medications: Home Medications Medication Instructions Recorded Confirmed Last Taken Type Aspirin 325 mg PO QDAY #14 tablet 01/16/20 Unknown Rx Cetirizine HCl [ZyrTEC 10mg cap] 10 mg PO DAILY #30 capsule 07/16/21 Unknown Rx Fluticasone [Flonase] 2 spray NS QDAY #1 bottle 07/16/21 Unknown Rx Ketorolac [Toradol] 10 mg PO Q6H PRN #20 tablet 07/16/21 Unknown Rx Ondansetron [Zofran ODT TAB] 4 mg PO Q8HR PRN #14 tab.rapdis 07/16/21 Unknown Rx ED Physical Exam - General Limitations: No Limitations General appearance: alert, in no apparent distress - Head Head exam: Present: atraumatic, normocephalic, normal inspection - Eye Eye exam: Present: normal appearance, PERRL, EOMI Pupils: Present: normal accommodation, other (no photophobia ) - ENT ENT exam: Present: normal exam, mucous membranes moist, TM's normal bilaterally, other (+max and frontal sinus ttp ) - Neck Neck exam: Present: normal inspection, full ROM. Absent: tenderness, meningi smus - Respiratory Respiratory exam: Present: normal lung sounds bilaterally - Cardiovascular Cardiovascular Exam: Present: regular rate, normal rhythm, normal heart sounds - GI/Abdominal GI/Abdominal exam: Present: soft. Absent: distended, tenderness, guarding, rebound - Neurological Exam Neurological exam: Present: alert, oriented X3, CN II-XII intact, normal gait - Psychiatric Psychiatric exam: Present: normal affect, normal mood - Skin Skin exam: Present: intact ED Course Vital Signs 07/16/21 07/16/21 08:28 12:39 Temperature 98.9 F 97.8 F Pulse Rate 98 H 79 Respiratory 18 18 Rate Blood Pressure 136/78 131/73 [Left] O2 Sat by Pulse 96 98 Oximetry ED Medical Decision Making - Lab Data Result diagrams: 07/16/21 11:58 07/16/21 09:45 - Radiology Data Radiology results: report reviewed Patient: KATHI LU MR# : [id number] : 1995 Acct:[id number] Age/Sex: 26 / M ADM Date: 07/16/21 Loc: ED Attending Dr: Ordering Physician: KAITLYN DONATO Date of Service: 07/16/21 Procedure(s): CT head/brain wo con Accession Number(s): [id number] cc: KAITLYN DONATO CT head/brain wo con INDICATION: Headache/neck pain. TECHNIQUE: Routine CT head. All CT scans at this location are performed using CT dose reduction for ALARA by means of automated exposure control. COMPARISON: None. FINDINGS: Intracranial: Bhatt-white matter differentiation is maintained. No intracranial hemorrhage. No extra axial collection. No hydrocephalus. No herniation. Sinuses: Paranasal sinuses and mastoid air cells are essentially clear. Orbits: Globes are intact. Calvarium: No acute fracture. IMPRESSION: 1. No acute intracranial abnormality. Signer Name: Ramiro Johnson MD Signed: 07/16/2021 9:38 AM Workstation Name: [id number] Transcribed By: CS Dictated By: Ramiro Johnson MD Electronically Authenticated By: Ramiro Johnson MD Signed Date/Time: 11937 DD/ 6 TD/TT: - Medical Decision Making 26-year-old male who denies any significant past medical history presents to the ER with complaints of headache and neck pain. Patient states that his symptoms started yesterday. Patient states that he has had a headache that starts in his forehead, and radiates around into the back of his head down into his neck and behind his eyes. And he also states that has been having this sharp pain behind his left ear. Patient states that the pain is constant. He took some 800 mg ibuprofen last night and went to sleep and therefore unable to tell whether the ibuprofen helped or not. Patient reports nausea but no vomiting. He reports a stinging sensation in his left nare but no nasal congestion or rhinorrhea. He denies any fever, chills or cough. He denies any head injury. He states that he has been around his daughter who had a cold recently. He states that he has had headaches in the past, somewhat similar to what he is having today but the difference with this headache is that he is having associated with pain in his neck, and when he moves his eye left and right he is also having pain. He has never been officially diagnosed with any type of tension, cluster or migraine headaches. He denies any recent travel out of the country. He denies any focal numbness, tingling, weakness, vision changes, speech changes or any additional symptoms at this time. The patient is now resting comfortably and feels better, is alert, talkative, interactive and in no distress. The patient appears well and is able to tolerate p.o. fluids. He has no meningeal signs on exam. All labs reviewed and unremarkable including a normal CBC e. CT head negative. The patient is neurologically intact, has a normal mental status, and is ambulatory in the ER. He is afebrile and remaining vitals are stable. The history, exam, diagnostic testing and the patient's current condition does not suggest meningitis, stroke, sepsis, subarachnoid hemorrhage, intracranial bleeding, encephalitis, or other significant pathology to warrant further testing, continued ED treatment, admission, neurological consultation or other specialist evaluation at this point. Exact cause of the headache unclear, it could be related to a viral illness. Discussed all results, suspected diagnosis and treatment plan with kendall palma. I did recommend that he has an outpatient COVID-19 test. Discussed worsening signs and symptoms with patient and what to look for that he needs to return to the ER for immediately. The patient's condition is stable and appropriate for discharge. Patient expressed understanding of all instructions and agree with plan. The patient will pursue further outpatient evaluation with the primary care physician or other designated or consulting physician as indicated in the discharge instruction. Critical care attestation.: If time is entered above; I have spent that time in minutes in the direct care of this critically ill patient, excluding procedure time. ED Disposition Clinical Impression: Headache, Viral illness Disposition: HOME / SELF CARE / HOMELESS Is pt being admited?: No Does the pt Need Aspirin: No Condition: Stable Instructions: General Headache Without Cause, Viral Illness, Adult Additional Instructions: I recommend that you take the Toradol as prescribed to help with your headache. Take the Zofran to help with nausea and vomiting. Recommend that you use the Flonase, and Sudafed to help with any sinus congestion or pressure. Drink lots of fluids. If you continue having symptoms you may want to take an outpatient COVID-19 test as this could also be a cause of your symptoms. Follow-up closely with your PCP. Return to the ER if your symptoms changes or worsens in any way. Prescriptions: Fluticasone [Flonase] 2 spray NS QDAY #1 bottle Ketorolac [Toradol] 10 mg PO Q6H PRN #20 tablet PRN Reason: Pain Ondansetron [Zofran ODT TAB] 4 mg PO Q8HR PRN #14 tab.rapdis PRN Reason: Nausea And Vomiting Cetirizine HCl [ZyrTEC 10mg cap] 10 mg PO DAILY #30 capsule Referrals: FANI ONEAL MD [Primary Care Provider] - 3-5 Days CANDELARIA LOVELL MD [Staff Physician] - 3-5 Days [facility] [Provider Group] - 3-5 Days Forms: Work/School Release Form(ED) Time of Disposition: 12:28
--- NOTE | 2021-07-16 09:43 | Cat Scan Report ---
CT head/brain wo con INDICATION: Headache/neck pain. TECHNIQUE: Routine CT head. All CT scans at this location are performed using CT dose reduction for A CHELSEA by means of automated exposure control. COMPARISON: None. FINDINGS: Intracranial: Bhatt-white matter differentiation is maintained. No intracranial hemorrhage. No extra a xial collection. No hydrocephalus. No herniation. Sinuses: Paranasal sinuses and mastoid air cells are essentially clear. Orbits: Globes are intact. Calvarium: No acute fracture. IMPRESSION: 1. No acute intracranial abnormality. Signer Name: Ramiro Johnson MD Signed: 07/16/2021 9:38 AM Workstation Name: [id number]
[2021-07-16 10:22] LABS: Alanine Aminotransferase 33 units/L (7-56); Albumin 4.8 g/dL (3.9-5); BUN/Creatinine Ratio 17; Blood Urea Nitrogen 17 mg/dL (9-20); Calcium 9.2 mg/dL (8.4-10.2); Hemolysis Index 172
[2021-07-16] MEDS ORDERED: METOCLOPRAMIDE 10 MG/2 ML INJ IV ONE (10:42)
[2021-07-16 12:18] LABS: Hematocrit 43.4 % (35.5-45.6); Mean Corpuscular HGB Conc 32 % (32-34); Mean Corpuscular Volume 89 fl (84-94); Platelet Count 176 K/mm3 (140-440); Red Blood Count 4.86 M/mm3 (3.65-5.03); Red Cell Distribution Width 12.7 % (13.2-15.2)
[2021-07-16 12:42] VITALS: BP 131/73
[2021-07-16 17:07] LABS: Platelet Estimate Consistent w Auto; RBC Morphology Normal; Total Cells Counted 100
== END 2021-07-16 12:39 | disposition home or self-care (01) ==
LOC: ED 08:20
DX: B34.9 Viral infection, unspecified (principal); R51.9 Headache, unspecified; M54.2 Cervicalgia; F17.200 Nicotine dependence, unspecified, uncomplicated; F12.90 Cannabis use, unspecified, uncomplicated; Z72.89 Other problems related to lifestyle
CPT/HCPCS: 36415; 70450; 80053; 85007; 85025; 87400; 96361; 96374; 96375; 99284; J1200; J2765; J7030